=== PATIENT | male | born 1930 | race Caucasian/White ===

== ENCOUNTER 2016-03-28 08:57 | Inpatient (IN) | payer OTHER ==
[~2016-03-28] VITALS: Ht 177.8 cm; Wt 98.5 kg
[~2016-03-28 08:57] MED LIST: AMLO5TAB4 PO; CLOP1TAB15 PO; CRD200 PO; FINA5TAB PO; FLM4 PO; HYDR12.55 PO; LISI-725 PO; OXYC1TAB3 PO; SIMV20TA2 PO; WARF5TAB7 PO; ZOLP10TA PO
[2016-03-28] MEDS ORDERED: ONDANSETRON INJ 2 MG/ML 2 ML VIAL IV STA (09:13)
[2016-03-28] MEDS ORDERED: MoRPHine SULFATE 4 MG/ML 1 ML CARP\\VIAL IV PRN (09:15)
--- NOTE | 2016-03-28 09:24 | EMERGENCY ROOM VISIT NOTE ---
History Report prepared by Ruby: Carito Lopez Under the Supervision of: Dr. Luis Carlos Ng D.O. First contact with patient: 09:04 Chief Complaint: FALL Stated Complaint: FALL History of Present Illness The patient is an 85 year old male who presents to the Emergency Room with complaints of low back pain after a fall. The patient states that he has a chronic sore that has been ongoing for 3-4 months on his left ankle. He states it is no worse than usual. He notices no worsening of redness swelling or pain in this area that he was putting baby oil to the area last night before bed. He had his left leg up on the toilet. He turned the wrong way and his foot slipped off of the toilet and he fell backwards. He struck his back in his right hip on the step that leads into the shower. The patient had very significant pain in this area. The patient fell last evening and took his a long time to get him out of the bathroom. The patient was unable to put any weight on his right leg. He states the area is weak but he also has very severe pain whenever he tries to put any weight on his right leg. He denies any headache. He denies having any neck pain. The patient denies having any chest pain shortness of breath nausea or vomiting. He has no abdominal tenderness. He did not take any pain medication prior to arrival. When his pain continued this morning his significant other called 911 and the patient was brought to the emergency department via BLS. Source of History: patient Onset: last evening Position: back (lower) Timing: worsening Modifying Factors (Worsening): other (weight bearing) Associated Symptoms: No SOB, No abdominal pain, No chest pain, No headache, No neck pain Note: Patient is unable to put weight on right leg secondary to pain. Review of Systems See HPI for pertinent positives & negatives. A total of 10 systems reviewed and were otherwise negative. 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 (4) Hyperlipidemia Nec/Nos (5) Hypertension Nos (6) Intracerebral Hemorrhage Family History No pertinent family history Social History Smoking Status: Never Smoker Alcohol Use: none Drug Use: none Marital Status: Occupation Status: retired Current/Historical Medications Scheduled Amiodarone Hcl (Cordarone *), 200 MG PO DAILY Amlodipine Besylate (Norvasc), 5 MG PO HS Clopidogrel (Plavix), 75 MG PO DAILY Finasteride (Proscar), 5 MG PO DAILY Hydrochlorothiazide (Hydrochlorothiazide), 12.5 MG PO DAILY Levothyroxine Sodium (Synthroid), 1 TAB PO DAILY Lisinopril (Zestril), 20 MG PO BID Simvastatin (Zocor), 20 MG PO QPM Tamsulosin Hcl (Flomax *), 0.4 MG PO DAILY Warfarin Sod (Jantoven), 2.5 MG PO DAILY Zolpidem Tartrate (Ambien), 10 MG PO HS Allergies Coded Allergies: No Known Allergies (Verified , NONE, 03/02/14) Physical Exam Vital Signs Date Time Temp Pulse Resp B/P Pulse Ox O2 Delivery O2 Flow Rate FiO2 03/28/16 17:59 61 18 120/74 95 Room Air 03/28/16 16:20 65 17 121/72 96 Room Air 03/28/16 14:30 64 20 126/63 97 Room Air 03/28/16 13:30 69 20 159/88 98 Room Air 03/28/16 11:33 65 15 136/84 97 Room Air 03/28/16 09:02 36.9 88 20 166/90 99 Room Air Physical Exam GENERAL: Patient is awake and alert. He appears to be very anxious and uncomfortable. EYES: The conjunctivae are clear. The pupils are round and reactive. EARS, NOSE, MOUTH AND THROAT: The nose is without any evidence of any deformity. Mucous membranes are moist tongue is midline NECK: The neck is nontender and supple. The cervical spine was clinically cleared in the emergency department. RESPIRATORY: Normal respiratory effort is noted there is no evidence of wheezing rhonchi or rales CARDIOVASCULAR: Regular rate and rhythm noted there no murmurs rubs or gallops normal S1 normal S2 GASTROINTESTINAL: The abdomen is mildly distended but soft. There is no specific tenderness guarding or rigidity noted. BACK: No midline tenderness was noted. There is significant right side paravertebral muscle tenderness especially in the low lumbar spine. There is no thoracic spine tenderness patient has significant pain with range of motion. MUSCULOSKELETAL/EXTREMITIES: There is no evidence of gross deformity full range of motion is noted in the hips and shoulders. Hip flexion does elicit significant pain in the lower back. SKIN: Pedal edema was noted bilaterally. Patient has an ulceration on the medial left ankle. There is mild erythema noted. There is no discharge or tenderness appreciated. NEUROLOGIC: Patient is awake alert and oriented x3. Strength was symmetric in both lower extremities but patient has very significant pain with raising the right leg off of the bed so it is difficult to ascertain if this is secondary to pain or weakness. Medical Decision & Procedures ER Provider Diagnostic Interpretation: CT results as stated below per my review and radiologist interpretation. X-ray results as stated below per interpretation by me and the radiologist. PELVIS CT CT DOSE: HISTORY: Right hip pain. fall, on blood thinners, hx of bleed TECHNIQUE: Multiaxial CT images of the pelvis were performed and reformatted in the sagittal and coronal plane without the use of contrast. COMPARISON: Abdomen and pelvis CT 02/02/2016. FINDINGS: Fractures involving the left L3 and L4 transverse processes. No fracture or dislocation within the pelvis or hips. Colonic diverticulosis. Mild body wall edema. The sacrum appears intact. Moderate osteoarthritis within the bilateral hips. IMPRESSION: 1. Left L3 and L4 transverse process fractures. 2. No acute fracture or dislocation within the pelvis or hips. Electronically signed by: Mike Nieto M.D. 03/28/2016 10:40 AM Dictated Date/Time: 03/28/2016 10:[address] LUMBAR SPINE WITHOUT CT DOSE: 3313.50 mGy.cm CLINICAL HISTORY: Fall. TECHNIQUE: Axial images lumbar spine were obtained without IV contrast. Sagittal and coronal reconstructions were viewed. COMPARISON STUDY: Lumbar spine CT September 26, 2015. FINDINGS: Alignment of the lumbar spine is anatomic. There are acute mildly displaced fractures of the left transverse processes of L2, L3 and L4. Vertebral body heights are maintained. Moderate multilevel degenerative disc disease and facet arthrosis is present. The central canal and neural foramen are suboptimally assessed by CT. Paravertebral soft tissues are unremarkable on this examination. Extensive osteophytosis is noted. IMPRESSION: 1. Acute mildly displaced fractures of the left transverse processes of L2, L3 and L4. 2. Moderate multilevel degenerative disc disease and severe multilevel facet arthrosis of the lumbar spine. Electronically signed by: Reji Whitley M.D. 03/28/2016 10:50 AM Dictated Date/Time: 03/28/2016 10:42 AM RIGHT HIP UNILATERAL 2 VIEWS CLINICAL HISTORY: Right hip pain following fall. COMPARISON: CT of the abdomen and pelvis February 02, 2016. FINDINGS: Alignment of the right hip is anatomic. No acute fracture is identified. There is moderate right hip arthritis. IMPRESSION: 1. No acute fracture or dislocation of the right hip. 2. Moderate osteoarthritis of the right hip. Electronically signed by: Reji Whitley M.D. 03/28/2016 11:29 AM Dictated Date/Time: 03/28/2016 11:[address] SCAN OF THE BRAIN WITHOUT IV CONTRAST CLINICAL HISTORY: Fall. Anticoagulated patient. COMPARISON STUDY: CT of the brain dated 06/04/2012. TECHNIQUE: Unenhanced axial CT scan of the brain is performed from the vertex to the skull base. FINDINGS: Brain parenchyma: There are age-related involutional changes noting moderate to advanced subcortical and periventricular microangiopathic change. There is encephalomalacia consistent with a remote right MCA territory infarct. There are also foci of right frontal, right occipital, and right cerebellar encephalomalacia. A chronic lacunar infarct is seen in the left external capsule. There is no hemorrhage, mass effect, or evidence of acute territorial ischemia by CT criteria. [place]-white matter is preserved. No extra-axial fluid collection is seen. Ventricles, sulci, cisterns: Prominent secondary to involutional change. Intracranial vasculature: There is atherosclerotic calcification of the cavernous carotid arteries. Calvarium: Unremarkable. Sinuses and mastoids: There is trace mucosal thickening in the left maxillary antrum. The remaining visualized paranasal sinuses are clear. The mastoid air cells are well pneumatized. Orbits: The bony orbits are grossly intact. There are bilateral ocular lens implants. IMPRESSION: Senescent changes and remote infarcts as above. There is no hemorrhage, mass effect, or evidence of acute territorial ischemia by CT criteria. Electronically signed by: Jeff Tavarez M.D. 03/28/2016 10:40 AM Dictated Date/Time: 03/28/2016 10:34 AM CHEST 2 VIEWS ROUTINE HISTORY: fall, on blood thinners, hx of bleed COMPARISON: Chest 09/26/2015. FINDINGS: Low lung volumes. No focal lung consolidations. No evidence for pulmonary edema. No pleural effusions. No pneumothorax. The cardiac silhouette is mildly enlarged. This may be accentuated by the low lung volumes. No rib fractures identified. IMPRESSION: No acute process. Electronically signed by: Mike Nieto M.D. 03/28/2016 11:29 AM Dictated Date/Time: 03/28/2016 11:27 AM LEFT ANKLE MIN 3 VIEWS ROUTINE CLINICAL HISTORY: Left ankle swelling, non healing ulcer medial ankle. COMPARISON: Left ankle radiographs June 04, 2012. FINDINGS: Alignment of the left ankle is anatomic. No acute fracture is identified. There is extensive posterior calcaneal spurring with mild plantar calcaneal spurring. Multiple soft tissue calcifications are old. Irregularity of the medial and lateral malleoli is old. There is mild to moderate arthritis. Medial ankle soft tissue swelling is present. There is no radiographic evidence of osteomyelitis. IMPRESSION: 1. No acute fracture or dislocation of the left ankle. 2. Moderate medial ankle soft tissue swelling. No radiographic evidence of osteomyelitis. 3. Mild to moderate arthritis with extensive posterior calcaneal spurring. Electronically signed by: Reji Whitley M.D. 03/28/2016 11:27 AM Dictated Date/Time: 03/28/2016 11:26 AM Laboratory Results 03/28/16 10:09 Red Blood Count 4.00, Mean Corpuscular Volume 95.8, Mean Corpuscular Hemoglobin 32.8, Mean Corpuscular Hemoglobin Concent 34.2, Mean Platelet Volume 10.4, Neutrophils (%) (Auto) 67.0, Lymphocytes (%) (Auto) 20.8, Monocytes (%) (Auto) 10.1, Eosinophils (%) (Auto) 1.6, Basophils (%) (Auto) 0.3, Neutrophils # (Auto ) 4.16, Lymphocytes # (Auto) 1.29, Monocytes # (Auto) 0.63, Eosinophils # (Auto ) 0.10, Basophils # (Auto) 0.02 03/28/16 10:09 Test 03/28/16 09:47 03/28/16 10:09 Urine Color YELLOW Urine Appearance CLEAR (CLEAR) Urine pH 5.0 (4.5-7.5) Urine Specific [place] 1.013 (1.000-1.030) Urine Protein NEG (NEG) Urine Glucose (UA) NEG (NEG) Urine Ketones TRACE (NEG) Urine Occult Blood NEG (NEG) Urine Nitrite NEG (NEG) Urine Bilirubin NEG (NEG) Urine Urobilinogen NEG (NEG) Urine Leukocyte Esterase NEG (NEG) White Blood Count 6.21 K/uL (4.8-10.8) Red Blood Count 4.00 M/uL (4.7-6.1) Hemoglobin 13.1 g/dL (14.0-18.0) Hematocrit 38.3 % (42-52) Mean Corpuscular Volume 95.8 fL (80-100) Mean Corpuscular Hemoglobin 32.8 pg (25-34) Mean Corpuscular Hemoglobin Concent 34.2 g/dl (32-36) Platelet Count 229 K/uL (130-400) Mean Platelet Volume 10.4 fL (7.4-10.4) Neutrophils (%) (Auto) 67.0 % Lymphocytes (%) (Auto) 20.8 % Monocytes (%) (Auto) 10.1 % Eosinophils (%) (Auto) 1.6 % Basophils (%) (Auto) 0.3 % Neutrophils # (Auto) 4.16 K/uL (1.4-6.5) Lymphocytes # (Auto) 1.29 K/uL (1.2-3.4) Monocytes # (Auto) 0.63 K/uL (0.11-0.59) Eosinophils # (Auto) 0.10 K/uL (0-0.5) Basophils # (Auto) 0.02 K/uL (0-0.2) RDW Standard Deviation 48.9 fL (36.4-46.3) RDW Coefficient of Variation 14.0 % (11.5-14.5) Immature Granulocyte % (Auto) 0.2 % Immature Granulocyte # (Auto) 0.01 K/uL (0.00-0.02) Prothrombin Time 25.0 SECONDS (9.0-12.0) Prothromb Time International Ratio 2.3 (0.9-1.1) Activated Partial Thromboplast Time 34.1 SECONDS (21.0-31.0) Partial Thromboplastin Ratio 1.3 Anion Gap 8.0 mmol/L (3-11) Est Creatinine Clear Calc Drug Dose 43.9 ml/min Estimated GFR () 49.2 Estimated GFR (Non- 42.4 BUN/Creatinine Ratio 16.8 (10-20) Calcium Level 9.1 mg/dl (8.5-10.1) Total Bilirubin 0.7 mg/dl (0.2-1) Direct Bilirubin 0.2 mg/dl (0-0.2) Aspartate Amino Transf (AST/SGOT) 21 U/L (15-37) Alanine Aminotransferase (ALT/SGPT) 25 U/L (12-78) Alkaline Phosphatase 93 U/L (45-117) Total Protein 7.1 gm/dl (6.4-8.2) Albumin 4.1 gm/dl (3.4-5.0) Lipase 124 U/L (73-393) Laboratory results per my review. ED Course 0910: The patient was evaluated in room A2. A complete history and physical examination were performed. 0913: Zofran 4 mg IV and Morphine Sulfate 4 mg IV were ordered. 1100: Patient was reevaluated at this time and appeared to be resting more comfortably. The results of his radiology reports are pending. 1300: I reevaluated the patient at this time and updated him on the results of his radiology reports. [facility] will be in to evaluate him and the orthopedist will be contacted. 1400: [facility] has evaluated the patient. They have determined that he meets criteria for rehab. 1430: Dr. Holt of spinal orthopedics called back and recommended giving the patient an LSO brace. Orthotics will be contacted. 1600: Orthotics was able to fit the patient with the LSO brace. 1630: 1550: Case management contacted [facility] and stated that they do not currently have any available beds. The hospitalist will be contacted. 1640: After discussion with Dr. Riddle, the patient will continue to be evaluated by the [facility] hospitalist for further management. The patient verbalized his understanding and agreement with this treatment plan. Medical Decision Prior records/ancillary studies reviewed. Triage Nursing notes reviewed. Additional history obtained from the patient's significant other. The patient's history was concerning for fall and back pain. Differential diagnosis: Etiologies such as musculoskeletal, disc herniation, fracture, aortic disease, metastatic disease, cord compression, discitis, infection, renal colic, gastrointestinal, acute exacerbation of chronic back pain, sciatica, cauda equina, as well as others were entertained. The patient is an 85-year-old male who presented to the emergency department after having a fall last evening. The patient in very severe pain in his lower back after a fall. The patient is on Coumadin. He denies having directly struck his head. The patient complains of mostly right back right hip and lower back pain. The patient is any pain with any movement. He was treated with IV pain medication in the emergency department. I discussed the patient's laboratory and radiographic studies with him. He was found have multiple transverse process fractures. He did not appear to have any acute fracture in the pelvis or the hip. I discussed his case with the emergency department complex case manager. They initially were able to make a referral to rehabilitation. He was evaluated by OT and PT in the emergency department. He was felt to be a good candidate for rehabilitation. Unfortunately we were unable to get out of bed this evening. I discussed his case with the on-call spinal specialist as well as the on-call [facility] hospitalist group. The patient is to be evaluated by the hospitalist for inpatient management and then likely referral to a rehabilitation as soon as possible. Consults Time Called: 1300 Consulting Physician: Dr. Holt - spinal orthopedics Returned Call: 1430 Discussed the patient's case. He recommended fitting the patient with an LSO brace. Additional Consults: Time Called: 1630 Consulted Physician: Dr. Riddle - [facility] Returned Call: 1640 Additional Comments: Discussed the patient's case. He will continue to be evaluated by the [facility] hospitalist for further management. Impression Primary Impression: Fall Additional Impressions: Multiple transverse process fractures Contusion of right hip Ambulatory dysfunction Scribe Attestation The scribe's documentation has been prepared under my direction and personally reviewed by me in its entirety. I confirm that the note above accurately reflects all work, treatment, procedures, and medical decision making performed by me. Departure Information Dispostion Being Evaluated By Hospitalist ([facility]) Referrals Rafa Gonzalez M.D. (PCP) Problem Qualifiers
[2016-03-28 10:04] LABS: URINE APPEARANCE CLEAR (CLEAR); URINE BILIRUBIN NEG (NEG); URINE COLOR YELLOW; URINE NITRITE NEG (NEG); URINE SPECIFIC GRAVITY 1.013 (1.000-1.030); UROBILINOGEN NEG (NEG)
[2016-03-28] MEDS ORDERED: LEVO25TA PO (10:10)
[2016-03-28 10:13] LABS: MANUAL MICROSCOPIC REQUIRED? NO; REVIEW REQ? NO
[2016-03-28 10:26] LABS: BASO % 0.3 %; BASO ABS # 0.02 K/uL (0-0.2); COMPLETE YES; EOS % 1.6 %; HEMATOCRIT 38.3 % (42-52); IG% 0.2 %; LYMPH % 20.8 %; LYMPH ABS # 1.29 K/uL (1.2-3.4); MEAN CELL VOLUME 95.8 fL (80-100); MEAN CORPUSCULAR HEMOGLOBIN 32.8 pg (25-34); MEAN CORPUSCULAR HGB CONC 34.2 g/dl (32-36); MEAN PLATELET VOLUME 10.4 fL (7.4-10.4); MONO % 10.1 %; PLATELET COUNT 229 K/uL (130-400); WHITE BLOOD COUNT 6.21 K/uL (4.8-10.8)
[2016-03-28 10:37] LABS: INR 2.3 (0.9-1.1); PARTIAL THROMBOPLASTIN RATIO 1.3
[2016-03-28 10:41] LABS: BUN/CREATININE RATIO 16.8 (10-20); CALCIUM 9.1 mg/dl (8.5-10.1); CREATININE 1.5 mg/dl (0.60-1.40); POTASSIUM 4.4 mmol/L (3.5-5.1)
--- NOTE | 2016-03-28 10:42 | DIAGNOSTIC IMAGING REPORT ---
PELVIS CT CT DOSE: HISTORY: Right hip pain. fall, on blood thinners, hx of bleed TECHNIQUE: Multiaxial CT images of the pelvis were performed and reformatted in the sagittal and coronal plane without the use of contrast. COMPARISON: Abdomen and pelvis CT 02/02/2016. FINDINGS: Fractures involving the left L3 and L4 transverse processes. No fracture or dislocation within the pelvis or hips. Colonic diverticulosis. Mild body wall edema. The sacrum appears intact. Moderate osteoarthritis within the bilateral hips. IMPRESSION: 1. Left L3 and L4 transverse process fractures. 2. No acute fracture or dislocation within the pelvis or hips. Electronically signed by: Mike Nieto M.D. 03/28/2016 10:40 AM Dictated Date/Time: 03/28/2016 10:33 AM
--- NOTE | 2016-03-28 10:42 | DIAGNOSTIC IMAGING REPORT ---
CT SCAN OF THE BRAIN WITHOUT IV CONTRAST CLINICAL HISTORY: Fall. Anticoagulated patient. COMPARISON STUDY: CT of the brain dated 06/04/2012. TECHNIQUE: Unenhanced axial CT scan of the brain is performed from the vertex to the skull base. FINDINGS: Brain parenchyma: There are age-related involutional changes noting moderate to advanced subcortical and periventricular microangiopathic change. There is encephalomalacia consistent with a remote right MCA territory infarct. There are also foci of right frontal, right occipital, and right cerebellar encephalomalacia. A chronic lacunar infarct is seen in the left external capsule. There is no hemorrhage, mass effect, or evidence of acute territorial ischemia by CT criteria. [place]-white matter is preserved. No extra-axial fluid collection is seen. Ventricles, sulci, cisterns: Prominent secondary to involutional change. Intracranial vasculature: There is atherosclerotic calcification of the cavernous carotid arteries. Calvarium: Unremarkable. Sinuses and mastoids: There is trace mucosal thickening in the left maxillary antrum. The remaining visualized paranasal sinuses are clear. The mastoid air cells are well pneumatized. Orbits: The bony orbits are grossly intact. There are bilateral ocular lens implants. IMPRESSION: Senescent changes and remote infarcts as above. There is no hemorrhage, mass effect, or evidence of acute territorial ischemia by CT criteria. Electronically signed by: Jeff Tavarez M.D. 03/28/2016 10:40 AM Dictated Date/Time: 03/28/2016 10:34 AM
--- NOTE | 2016-03-28 10:52 | DIAGNOSTIC IMAGING REPORT ---
CT LUMBAR SPINE WITHOUT CT DOSE: 3313.50 mGy.cm CLINICAL HISTORY: Fall. TECHNIQUE: Axial images lumbar spine were obtained without IV contrast. Sagittal and coronal reconstructions were viewed. COMPARISON STUDY: Lumbar spine CT September 26, 2015. FINDINGS: Alignment of the lumbar spine is anatomic. There are acute mildly displaced fractures of the left transverse processes of L2, L3 and L4. Vertebral body heights are maintained. Moderate multilevel degenerative disc disease and facet arthrosis is present. The central canal and neural foramen are suboptimally assessed by CT. Paravertebral soft tissues are unremarkable on this examination. Extensive osteophytosis is noted. IMPRESSION: 1. Acute mildly displaced fractures of the left transverse processes of L2, L3 and L4. 2. Moderate multilevel degenerative disc disease and severe multilevel facet arthrosis of the lumbar spine. Electronically signed by: Reji Whitley M.D. 03/28/2016 10:50 AM Dictated Date/Time: 03/28/2016 10:42 AM
--- NOTE | 2016-03-28 11:29 | DIAGNOSTIC IMAGING REPORT ---
LEFT ANKLE MIN 3 VIEWS ROUTINE CLINICAL HISTORY: Left ankle swelling, non healing ulcer medial ankle. COMPARISON: Left ankle radiographs June 04, 2012. FINDINGS: Alignment of the left ankle is anatomic. No acute fracture is identified. There is extensive posterior calcaneal spurring with mild plantar calcaneal spurring. Multiple soft tissue calcifications are old. Irregularity of the medial and lateral malleoli is old. There is mild to moderate arthritis. Medial ankle soft tissue swelling is present. There is no radiographic evidence of osteomyelitis. IMPRESSION: 1. No acute fracture or dislocation of the left ankle. 2. Moderate medial ankle soft tissue swelling. No radiographic evidence of osteomyelitis. 3. Mild to moderate arthritis with extensive posterior calcaneal spurring. Electronically signed by: Reji Whitley M.D. 03/28/2016 11:27 AM Dictated Date/Time: 03/28/2016 11:26 AM
--- NOTE | 2016-03-28 11:31 | DIAGNOSTIC IMAGING REPORT ---
RIGHT HIP UNILATERAL 2 VIEWS CLINICAL HISTORY: Right hip pain following fall. COMPARISON: CT of the abdomen and pelvis February 02, 2016. FINDINGS: Alignment of the right hip is anatomic. No acute fracture is identified. There is moderate right hip arthritis. IMPRESSION: 1. No acute fracture or dislocation of the right hip. 2. Moderate osteoarthritis of the right hip. Electronically signed by: Reji Whitley M.D. 03/28/2016 11:29 AM Dictated Date/Time: 03/28/2016 11:28 AM
--- NOTE | 2016-03-28 11:31 | DIAGNOSTIC IMAGING REPORT ---
CHEST 2 VIEWS ROUTINE HISTORY: fall, on blood thinners, hx of bleed COMPARISON: Chest 09/26/2015. FINDINGS: Low lung volumes. No focal lung consolidations. No evidence for pulmonary edema. No pleural effusions. No pneumothorax. The cardiac silhouette is mildly enlarged. This may be accentuated by the low lung volumes. No rib fractures identified. IMPRESSION: No acute process. Electronically signed by: Mike Nieto M.D. 03/28/2016 11:29 AM Dictated Date/Time: 03/28/2016 11:27 AM
[2016-03-28] MEDS ORDERED: ACETAMINOPHEN 325 MG TAB PO PRN (17:30)
[2016-03-28] MEDS ORDERED: OXYCODONE/ACETAMINOPHEN 5-325 TAB PO PRN (17:30)
[2016-03-28] MEDS ORDERED: ONDANSETRON INJ 2 MG/ML 2 ML VIAL IV PRN (17:30)
[2016-03-28 17:35] VITALS: O2SAT 96; Ht 177.8 cm; Wt 98.5 kg
[2016-03-28] MEDS ORDERED: IV FLUIDS COMPLETED PRN (18:30)
[2016-03-28 18:50] VITALS: BP 131/81; PULSE 62; TEMP 36.7; O2SAT 96
--- NOTE | 2016-03-28 19:43 | History and Physical ---
History & Physical Date & Time of Service: Mar 28, 2016 at 17:33 Chief Complaint: FALL Primary Care Physician: Rafa Gonzalez M.D. History of Present Illness Source: patient Pt is a 85 year old male who presents to the ER with complaints of low back pain after a fall. Pt reports he was propping his left leg on the toilet to place cream on his leg when he fell backwards and struck his back and right hip. The patient had very significant pain in this area. The patient fell last evening and took his a long time to get him out of the bathroom. The patient was unable to put any weight on his right leg. He states the area is weak but he also has very severe pain whenever he tries to put any weight on his right leg. He denies any headache. He denies having any neck pain. The patient denies having any chest pain shortness of breath nausea or vomiting. Past Medical/Surgical History Medical Problems: (1) Acute Renal Failure, Unspecified Status: Resolved (2) Coron Atheroscler Nos Type Vessel, Creek Or Graft Status: Chronic (3) Cva Status: Chronic (4) Hyperlipidemia Nec/Nos Status: Chronic (5) Hypertension Nos Status: Chronic (6) Intracerebral Hemorrhage Status: Resolved Family History No pertinent family history Social History Smoking Status: Never Smoker Drug Use: none Marital Status: Housing status: lives with family Occupational Status: retired Immunizations History of Influenza Vaccine: Yes Influenza Vaccine Date: Nov 29, 2010 History of Tetanus Vaccine?: utd History of Pneumococcal: Unknown Pneumococcal Date: Dec 02, 2009 History of Hepatitis B Vaccine: Unknown Multi-Drug Resistant Organisms History of MDRO: No Allergies Coded Allergies: No Known Allergies (Verified , NONE, 03/02/14) Home Medications Scheduled Amiodarone Hcl (Cordarone *), 200 MG PO DAILY Amlodipine Besylate (Norvasc), 5 MG PO HS Clopidogrel (Plavix), 75 MG PO DAILY Finasteride (Proscar), 5 MG PO DAILY Hydrochlorothiazide (Hydrochlorothiazide), 12.5 MG PO DAILY Levothyroxine Sodium (Synthroid), 1 TAB PO DAILY Lisinopril (Zestril), 20 MG PO BID Simvastatin (Zocor), 20 MG PO QPM Tamsulosin Hcl (Flomax *), 0.4 MG PO DAILY Warfarin Sod (Jantoven), 2.5 MG PO DAILY Zolpidem Tartrate (Ambien), 10 MG PO HS Review of Systems Constitutional: No chills, No fever Respiratory: No cough, No sputum Cardiovascular: No chest pain, No orthopnea Abdomen: No diarrhea, No nausea, No pain, No vomiting Musculoskeletal: + joint pain Genitourinary - Male: No dysuria, No hematuria Neurologic: No paralysis, No weakness Physical Exam Vital Signs Date Time Temp Pulse Resp B/P Pulse Ox O2 Delivery O2 Flow Rate FiO2 03/28/16 16:20 65 17 121/72 96 Room Air 03/28/16 14:30 64 20 126/63 97 Room Air 03/28/16 13:30 69 20 159/88 98 Room Air 03/28/16 11:33 65 15 136/84 97 Room Air 03/28/16 09:02 36.9 88 20 166/90 99 Room Air General Appearance: WD/WN, no apparent distress Neck: supple, no adenopathy Respiratory/Chest: chest non-tender, lungs clear, normal breath sounds Cardiovascular: no edema, no gallop Abdomen/GI: normal bowel sounds, non tender, soft Neurologic/Psych: alert, oriented x 3 Diagnostics Laboratory Results Results Past 24 Hours Test 03/28/16 09:47 03/28/16 10:09 Range/Units Urine Color YELLOW Urine Appearance CLEAR CLEAR Urine pH 5.0 4.5-7.5 Urine Specific [place] 1.013 1.000-1.030 Urine Protein NEG NEG Urine Glucose (UA) NEG NEG Urine Ketones TRACE NEG Urine Occult Blood NEG NEG Urine Nitrite NEG NEG Urine Bilirubin NEG NEG Urine Urobilinogen NEG NEG Urine Leukocyte Esterase NEG NEG White Blood Count 6.21 4.8-10.8 K/uL Red Blood Count 4.00 4.7-6.1 M/uL Hemoglobin 13.1 14.0-18.0 g/dL Hematocrit 38.3 42-52 % Mean Corpuscular Volume 95.8 80-100 fL Mean Corpuscular Hemoglobin 32.8 25-34 pg Mean Corpuscular Hemoglobin Concent 34.2 32-36 g/dl Platelet Count 229 130-400 K/uL Mean Platelet Volume 10.4 7.4-10.4 fL Neutrophils (%) (Auto) 67.0 % Lymphocytes (%) (Auto) 20.8 % Monocytes (%) (Auto) 10.1 % Eosinophils (%) (Auto) 1.6 % Basophils (%) (Auto) 0.3 % Neutrophils # (Auto) 4.16 1.4-6.5 K/uL Lymphocytes # (Auto) 1.29 1.2-3.4 K/uL Monocytes # (Auto) 0.63 0.11-0.59 K/uL Eosinophils # (Auto) 0.10 0-0.5 K/uL Basophils # (Auto) 0.02 0-0.2 K/uL RDW Standard Deviation 48.9 36.4-46.3 fL RDW Coefficient of Variation 14.0 11.5-14.5 % Immature Granulocyte % (Auto) 0.2 % Immature Granulocyte # (Auto) 0.01 0.00-0.02 K/uL Prothrombin Time 25.0 9.0-12.0 SECONDS Prothromb Time International Ratio 2.3 0.9-1.1 Activated Partial Thromboplast Time 34.1 21.0-31.0 SECONDS Partial Thromboplastin Ratio 1.3 Sodium Level 141 136-145 mmol/L Potassium Level 4.4 3.5-5.1 mmol/L Chloride Level 107 98-107 mmol/L Carbon Dioxide Level 26 21-32 mmol/L Anion Gap 8.0 3-11 mmol/L Blood Urea Nitrogen 25 7-18 mg/dl Creatinine 1.50 0.60-1.40 mg/dl Est Creatinine Clear Calc Drug Dose 43.9 ml/min Estimated GFR () 49.2 Estimated GFR (Non- 42.4 BUN/Creatinine Ratio 16.8 10-20 Random Glucose 103 70-99 mg/dl Calcium Level 9.1 8.5-10.1 mg/dl Total Bilirubin 0.7 0.2-1 mg/dl Direct Bilirubin 0.2 0-0.2 mg/dl Aspartate Amino Transf (AST/SGOT) 21 15-37 U/L Alanine Aminotransferase (ALT/SGPT) 25 12-78 U/L Alkaline Phosphatase 93 45-117 U/L Total Protein 7.1 6.4-8.2 gm/dl Albumin 4.1 3.4-5.0 gm/dl Lipase 124 73-393 U/L Impression Assessment and Plan Pt is a 85 yo male who presents to ER after mechanical fall with multiple transverse process fractures L2-4 with mild displacement Mechanical Fall with Transverse process fractures - Admit to OBS at this time. Brace placed in ER. Pain controlled on percocet. PT/OT consulted. Will discharge to [facility] when bed available Aflutter - Cont coumadin, rate controlled on amiodarone. INR 2.3 HTN - Cont lisinopril, norvasc, HCTZ Hx of carotid stent - Cont plavix BPH - Cont finasteride and flomax VTE Prophylaxis VTE Risk Assessment Done? Y/N: Yes Risk Level: Moderate
[2016-03-28] MEDS: ZOLPIDEM TARTRATE 10 MG TAB PO SCH (20:32)
[2016-03-28] MEDS: SIMVASTATIN 20 MG TAB PO SCH (20:32)
[2016-03-28] MEDS: AMLODIPINE BESYLATE 5 MG TAB PO SCH (20:33)
[2016-03-28] MEDS: WARFARIN SOD 5 MG TAB PO SCH (20:34)
[2016-03-28] MEDS ORDERED: LISINOPRIL 20 MG TAB PO SCH (21:00)
[2016-03-28 23:18] VITALS: BP 85/55; PULSE 61; TEMP 37; O2SAT 95
[2016-03-29] VITALS (7 sets, daily range): BP systolic 82–118; BP diastolic 49–64; PULSE 53–71; TEMP 36.5–36.7; O2SAT 94–96
[2016-03-29] MEDS ORDERED: NURSING VERBAL MED ORDER ONE (00:15)
[2016-03-29] MEDS ORDERED: SODIUM CHLORIDE 0.9% 250ML 250 ML IV STA (00:22)
[2016-03-29] MEDS: LEVOTHYROXINE 25 MCG TAB PO SCH (05:44)
[2016-03-29 07:02] LABS: INR 2.3 (0.9-1.1); PROTHROMBIN TIME (PATIENT) 25.4 SECONDS (9.0-12.0)
[2016-03-29] MEDS ORDERED: SODIUM CHLORIDE 0.9% 1000ML 500 ML IV ONE (07:51)
[2016-03-29] MEDS ORDERED: PNEUMOCOCCAL ADMINISTRATION CHARGE ONE (08:00)
[2016-03-29] MEDS ORDERED: PNEUMOCOCCAL POLYSACCHARIDES 25 MCG/0.5 ML VIAL/SYR IM. ONE (08:00)
[2016-03-29 08:31] LABS: BUN/CREATININE RATIO 17.2 (10-20); CALCIUM 8.4 mg/dl (8.5-10.1); CREATININE 1.8 mg/dl (0.60-1.40); POTASSIUM 4.1 mmol/L (3.5-5.1)
[2016-03-29] MEDS: FINASTERIDE 5 MG TAB PO SCH (08:31)
[2016-03-29] MEDS: TAMSULOSIN HCL 0.4 MG CAP PO SCH (08:34)
[2016-03-29] MEDS: AMIODARONE 200 MG TAB PO SCH (08:35)
[2016-03-29] MEDS: CLOPIDOGREL BISULFATE 75 MG TAB PO SCH (08:35)
[2016-03-29] MEDS ORDERED: HYDROCHLOROTHIAZIDE 25 MG TAB PO SCH (09:00)
[2016-03-29] MEDS ORDERED: SODIUM CHLORIDE 0.9% 1000ML 1,000 ML IV SCH (10:04)
[2016-03-29] MEDS: POLYETHYLENE (MIRALAX) 17 GM PACK PO SCH (12:26)
[2016-03-29] MEDS ORDERED: POLYETHYLENE (MIRALAX) 17 GM PACK PO SCH (13:00)
--- NOTE | 2016-03-29 13:06 | Hospitalist Progress Note ---
Hospitalist Progress Note Date of Service Mar 29, 2016. (Lacy Diamond PA-C) 03/29/16 agree with PA note (Raleigh Moore MD) Subjective Pt evaluation today including: conversation w/ patient, physical exam, chart review, lab review, review of studies, review of inpatient medication list Pain: None PO Intake: Good Voiding: no voiding problems Pt was seen and examined this morning. Pain is well controlled at this time, brace is fitting well. He has taken one percocet thus far, and he is requesting a bowel regimen as he normally requires one at home. He denies chest pain, lightheadedness, dizziness. Pt has no other acute complaints. Constitutional: No chills, No fever, No sweats Eyes: No problem reported ENT: No nasal symptoms, No sore throat Respiratory: No cough, No dyspnea on exertion, No shortness of breath, No sputum, No wheezing Cardiovascular: No chest pain, No palpitations Abdomen: No constipation, No diarrhea, No nausea, No vomiting Musculoskeletal: No joint pain Neurologic: No numbness/tingling, No weakness Skin: No itch, No rash (Lacy Diamond PA-C) Pt evaluation today including: conversation w/ patient, physical exam, chart review, review of studies, review of inpatient medication list reported low BP Constitutional: No fever ENT: No hearing loss Respiratory: No cough Cardiovascular: No chest pain Abdomen: No pain Male : No dysuria Neurologic: No memory loss Psychiatric: No depression symptoms Endo: No fatigue (Raleigh Moore MD) Objective Vital Signs Date Time Temp Pulse Resp B/P Pulse Ox O2 Delivery O2 Flow Rate FiO2 03/29/16 09:48 65 92/55 03/29/16 07:40 Room Air 03/29/16 07:01 36.5 55 18 100/62 94 Room Air 03/29/16 05:30 53 102/64 03/29/16 02:02 53 94/58 03/29/16 00:00 57 82/49 03/28/16 23:18 37.0 61 16 85/55 95 Room Air 03/28/16 19:30 Room Air 03/28/16 18:50 36.7 62 18 131/81 96 Room Air 03/28/16 17:59 61 18 120/74 95 Room Air 03/28/16 17:35 96 Room Air 03/28/16 16:20 65 17 121/72 96 Room Air 03/28/16 14:30 64 20 126/63 97 Room Air 03/28/16 13:30 69 20 159/88 98 Room Air (Lacy Diamond PA-C) Physical Exam General Appearance: WD/WN, no apparent distress Eyes: PERRL, EOMI ENT: hearing grossly normal, pharynx normal Neck: no JVD Respiratory/Chest: lungs clear, normal breath sounds, no respiratory distress, no accessory muscle use Cardiovascular: regular rate, rhythm, no murmur Abdomen: normal bowel sounds, non tender, soft Extremities: non-tender, no pedal edema, no calf tenderness Neurologic/Psychiatric: alert, normal mood/affect, oriented x 3 Skin: normal color, warm/dry Notes: BACK: brace in place currently. Pain with movement of sitting forward in trunk flexion. (Lacy Diamond PA-C) General Appearance: WD/WN, no apparent distress Eyes: normal inspection, EOMI ENT: hearing grossly normal, pharynx normal Neck: supple, no JVD Respiratory/Chest: chest non-tender, normal breath sounds Cardiovascular: regular rate, rhythm, no JVD Abdomen: non tender, soft Extremities: normal range of motion, no pedal edema Neurologic/Psychiatric: alert Skin: normal color (Raleigh Moore MD) Laboratory Results Last 24 Hours Test 03/29/16 06:05 03/29/16 06:06 Prothrombin Time 25.4 SECONDS Prothromb Time International Ratio 2.3 Sodium Level 142 mmol/L Potassium Level 4.1 mmol/L Chloride Level 108 mmol/L Carbon Dioxide Level 24 mmol/L Anion Gap 10.0 mmol/L Blood Urea Nitrogen 31 mg/dl Creatinine 1.80 mg/dl Est Creatinine Clear Calc Drug Dose 36.6 ml/min Estimated GFR () 39.5 Estimated GFR (Non- 34.0 BUN/Creatinine Ratio 17.2 Random Glucose 89 mg/dl Calcium Level 8.4 mg/dl (Lacy Diamond PA-C) Assessment and Plan This is a 85 yo M who presents after mechanical fall with multiple transverse process fractures L2-4 with mild displacement. Mechanical Fall with Transverse process fractures -Brace placed in ER. - Pain controlled on percocet. - PT/OT consulted. - Will discharge to [facility] when bed available FRANCO - Cr. increased from 1.5 up to 1.8 this morning - Received 500 mL bolus for hypotension, but will continue NSS at 100mL x 10 hours for now with gentle hydration Hypotension - Overnight SPBs were low intot he 80s, so recieved 500 mL bolus this morning. Pt is asymptomatic at bedside: denies lightheadedness, dizziness - Continue on gentle hydration: NSS @ 100mL/hr x 10 hours, can reassess this evening. Aflutter - Cont coumadin, rate controlled on amiodarone. INR 2.3 HTN - Cont lisinopril, norvasc, HCTZ Hx of carotid stent - Cont plavix Constipation - Will order mirilax and dulcolax. - Cont bowel regimen at time of discharge. BPH - Cont finasteride and flomax CODE STATUS: FULL CODE Disposition: Plan for discharge to [facility] tomorrow, pending Cr. trends down. (Lacy Diamond, PELON) This is a 85 yo M who presents after mechanical fall with multiple transverse process fractures L2-4 with mild displacement. Mechanical Fall with Transverse process fractures Brace placed in ER. Pain controlled on percocet. PT/OT consulted. Will discharge to [facility] when bed available FRANCO Cr. increased from 1.5 up to 1.8 this morning Received 500 mL bolus for hypotension, but will continue NSS at 100mL x 10 hours for now with gentle hydration check renal US Hypotension Overnight SPBs were low intot he 80s, so recieved 500 mL bolus this morning. Pt is asymptomatic at bedside: denies lightheadedness, dizziness Continue on gentle hydration: NSS 100mL/hr x 10 hours, can reassess this evening. Aflutter Cont coumadin, rate controlled on amiodarone. INR 2.3 HTN Cont lisinopril, norvasc, HCTZ Hx of carotid stent Cont plavix Constipation mirilax and dulcolax. Cont bowel regimen at time of discharge. BPH Cont finasteride and flomax CODE STATUS: FULL CODE Disposition: Plan for discharge to [facility] tomorrow, pending Cr. trends down. (Raleigh Moore MD)
[2016-03-29] MEDS ORDERED: BISACODYL 5 MG TABEC PO PRN (13:15)
--- NOTE | 2016-03-29 13:29 | DIAGNOSTIC IMAGING REPORT ---
RENAL ULTRASOUND CLINICAL HISTORY: Acute renal failure. COMPARISON STUDY: CT of the abdomen and pelvis February 02, 2016. TECHNIQUE: Sonography of the kidneys and the urinary bladder was performed. FINDINGS: The right kidney measures 10.1 x 5.5 x 4.5 cm and the left measures 9.5 x 5.9 x 4.5 cm. There is no hydronephrosis. A few subcentimeter renal lesions are difficult to characterize given their small size but likely reflect cysts. Both ureteral jets were identified. There is moderate bilateral renal cortical thinning. IMPRESSION: 1. No hydronephrosis. 2. Moderate bilateral renal cortical thinning. Electronically signed by: Reji Whitley M.D. 03/29/2016 1:27 PM Dictated Date/Time: 03/29/2016 1:25 PM
[2016-03-29] MEDS: WARFARIN SOD 5 MG TAB PO SCH (16:00)
[2016-03-29] MEDS: AMLODIPINE BESYLATE 5 MG TAB PO SCH (20:44)
[2016-03-29] MEDS: SIMVASTATIN 20 MG TAB PO SCH (20:45)
[2016-03-29] MEDS: ZOLPIDEM TARTRATE 10 MG TAB PO SCH (20:46)
[2016-03-30] MEDS: LEVOTHYROXINE 25 MCG TAB PO SCH (05:37)
[2016-03-30 08:09] LABS: INR 3.3 (0.9-1.1); PROTHROMBIN TIME (PATIENT) 37.6 SECONDS (9.0-12.0)
[2016-03-30 08:27] LABS: BUN/CREATININE RATIO 19.5 (10-20); CALCIUM 8.4 mg/dl (8.5-10.1); CREATININE 1.5 mg/dl (0.60-1.40); POTASSIUM 4.2 mmol/L (3.5-5.1)
[2016-03-30] MEDS: FINASTERIDE 5 MG TAB PO SCH (09:04)
[2016-03-30] MEDS: TAMSULOSIN HCL 0.4 MG CAP PO SCH (09:04)
[2016-03-30] MEDS: POLYETHYLENE (MIRALAX) 17 GM PACK PO SCH (09:05)
[2016-03-30] MEDS: AMIODARONE 200 MG TAB PO SCH (09:05)
[2016-03-30] MEDS: CLOPIDOGREL BISULFATE 75 MG TAB PO SCH (09:05)
[2016-03-30 09:11] VITALS: BP 124/60; PULSE 66; TEMP 36.8; O2SAT 98
[2016-03-30 10:13] VITALS: O2SAT 98
[2016-03-30 12:50] VITALS: BP 130/80; PULSE 60; TEMP 36.8; O2SAT 98
--- NOTE | 2016-03-30 14:07 | Progress Note ---
Subjective Subjective Date of Service: Mar 30, 2016. Pt evaluation today including: conversation w/ patient, physical exam, chart review, review of studies, review of inpatient medication list Problem List Medical Problems: (1) Ambulatory dysfunction Status: Acute (2) Contusion of right hip Status: Acute (3) Fall Status: Acute (4) Hematoma of right iliopsoas muscle Status: Acute (5) Multiple transverse process fractures Status: Acute (6) Right hip pain Status: Acute Review of Systems Constitutional: No fever ENT: No hearing loss Respiratory: No cough Breast: No breast lump Abdomen: No pain Male : No dysuria Neurologic: No memory loss Psychiatric: No depression symptoms Endo: No fatigue Physical Exam Vital Signs Vital Signs Past 24 Hours: Date Time Temp Pulse Resp B/P Pulse Ox O2 Delivery O2 Flow Rate FiO2 03/30/16 12:50 36.8 60 20 130/80 98 Room Air 03/30/16 10:13 98 Room Air 03/30/16 09:11 36.8 66 20 124/60 98 Room Air 03/30/16 08:00 Room Air 03/29/16 23:51 36.7 62 16 118/57 96 Room Air 03/29/16 23:25 Room Air 03/29/16 15:40 Room Air 03/29/16 15:00 36.6 71 18 94/62 96 Room Air Physical Exam: General Appearance: WD/WN, no apparent distress Eyes: bilateral eyes normal inspection ENT: hearing grossly normal, pharynx normal Neck: supple, no JVD Respiratory/Chest: chest non-tender, no respiratory distress, no accessory muscle use Cardiovascular: no gallop Abdomen: non tender, no organomegaly Extremities: normal inspection Neurologic/Psychiatric: no motor/sensory deficits, oriented x 3 Skin: warm/dry Medications Medications: Current Inpatient Medications Medications (Trade) Dose Ordered Sig/Ursula Route Start Time Stop Time Status Last Admin Dose Admin Acetaminophen (Tylenol Tab) 650 mg Q4H PRN PO 03/28/16 17:30 04/27/16 17:29 Ondansetron HCl (Zofran Inj) 4 mg Q6H PRN IV 03/28/16 17:30 04/27/16 17:29 Oxycodone/ Acetaminophen (Percocet 5-325MG Tab) 1 tab Q4H PRN PO 03/28/16 17:30 04/11/16 17:29 03/28/16 19:35 1 TAB Amiodarone HCl (Cordarone Tab) 200 mg DAILY PO 03/29/16 09:00 04/28/16 08:59 03/30/16 09:05 200 MG Amlodipine Besylate (Norvasc Tab) 5 mg HS PO 03/28/16 21:00 04/27/16 20:59 03/29/16 20:44 5 MG Clopidogrel Bisulfate (plAVix TAB) 75 mg DAILY PO 03/29/16 09:00 04/28/16 08:59 03/30/16 09:05 75 MG Finasteride (Proscar Tab) 5 mg DAILY PO 03/29/16 09:00 04/28/16 08:59 03/30/16 09:04 5 MG Levothyroxine Sodium (Synthroid Tab) 25 mcg DAILYBB PO 03/29/16 06:00 04/28/16 05:59 03/30/16 05:37 25 MCG Lisinopril (Zestril Tab) 20 mg BID PO 03/28/16 21:00 04/27/16 20:59 Future Hold 03/28/16 20:33 20 MG Simvastatin (Zocor Tab) 20 mg QPM PO 03/28/16 21:00 04/27/16 20:59 03/29/16 20:45 20 MG Tamsulosin HCl (Flomax Cap) 0.4 mg DAILY PO 03/29/16 09:00 04/28/16 08:59 03/30/16 09:04 0.4 MG Warfarin Sodium (Coumadin Tab) 2.5 mg DAILY@1600 PO 03/28/16 20:00 04/27/16 19:59 03/29/16 16:00 2.5 MG Zolpidem Tartrate (Ambien Tab) 10 mg HS PO 03/28/16 21:00 04/27/16 20:59 03/29/16 20:46 10 MG Hydrochlorothiazide (Hydrochlorothiazide Tab) 12.5 mg DAILY PO 03/29/16 09:00 04/28/16 08:59 Future Hold Miscellaneous (Iv Fluids Completed) 1 ea PRN PRN N/A 03/28/16 18:30 03/28/17 18:29 Polyethylene (Miralax Powder Packet) 17 gm DAILY PO 03/29/16 10:45 04/28/16 10:44 03/30/16 09:05 17 GM Bisacodyl (Dulcolax Tab) 5 mg BID PRN PO 03/29/16 13:15 04/28/16 13:14 Laboratory Data Labs: Last 24 Hours Test 03/30/16 07:20 Prothrombin Time 37.6 SECONDS Prothromb Time International Ratio 3.3 Sodium Level 144 mmol/L Potassium Level 4.2 mmol/L Chloride Level 110 mmol/L Carbon Dioxide Level 26 mmol/L Anion Gap 8.0 mmol/L Blood Urea Nitrogen 29 mg/dl Creatinine 1.50 mg/dl Est Creatinine Clear Calc Drug Dose 43.9 ml/min Estimated GFR () 49.2 Estimated GFR (Non- 42.4 BUN/Creatinine Ratio 19.5 Random Glucose 101 mg/dl Calcium Level 8.4 mg/dl Assessment and Plan This is a 85 yo M who presents after mechanical fall with multiple transverse process fractures L2-4 with mild displacement. Mechanical Fall with Transverse process fractures Brace placed in ER. Pain controlled on percocet. PT/OT consulted. FRANCO Cr. at 1.5 from 1.8 this morning pt received NSS at 100mL for 10 hours renal US: 1. No hydronephrosis. 2. Moderate bilateral renal cortical thinning. Hypotension improved with hydration Aflutter hold coumadin, rate controlled on amiodarone. INR 3.3 HTN Cont lisinopril, norvasc, HCTZ Hx of carotid stent Cont plavix Constipation mirilax and dulcolax. Cont bowel regimen at time of discharge. BPH Cont finasteride and flomax DVT proph coumadin, INR is 3.3 CODE STATUS: FULL CODE Disposition: Plan for discharge to SNF on friday if creatinine continues to improve
[2016-03-30 14:49] VITALS: BP 102/66; PULSE 67; TEMP 36.7; O2SAT 93
[2016-03-30 16:03] VITALS: BP 146/78; PULSE 72; TEMP 36.5; O2SAT 95
[2016-03-30] MEDS ORDERED: NURSING VERBAL MED ORDER ONE (17:00)
[2016-03-30] MEDS ORDERED: SOD PHOSPHATE/SOD BIPHOSPHATE ENEMA 132 ML BTL PR ONE (17:15)
[2016-03-30] MEDS ORDERED: LEVOTHYROXINE 50 MCG TAB PO ONE (17:15)
[2016-03-30] MEDS: ZOLPIDEM TARTRATE 10 MG TAB PO SCH (20:46)
[2016-03-30] MEDS: SIMVASTATIN 20 MG TAB PO SCH (20:47)
[2016-03-30] MEDS: AMLODIPINE BESYLATE 5 MG TAB PO SCH (20:47)
[2016-03-30 22:53] VITALS: BP 112/72; PULSE 60; TEMP 36.8; O2SAT 97
[2016-03-31] MEDS: LEVOTHYROXINE 75 MCG TAB PO SCH (05:37)
[2016-03-31 06:05] LABS: PROTHROMBIN TIME (PATIENT) 46.8 SECONDS (9.0-12.0)
[2016-03-31 06:07] LABS: INR 4.1 (0.9-1.1)
[2016-03-31 07:40] VITALS: BP 125/71; PULSE 53; TEMP 36.5; O2SAT 97
[2016-03-31] MEDS: FINASTERIDE 5 MG TAB PO SCH (08:40)
[2016-03-31] MEDS: TAMSULOSIN HCL 0.4 MG CAP PO SCH (08:40)
[2016-03-31] MEDS: AMIODARONE 200 MG TAB PO SCH (08:40)
[2016-03-31] MEDS: CLOPIDOGREL BISULFATE 75 MG TAB PO SCH (08:40)
[2016-03-31] MEDS: POLYETHYLENE (MIRALAX) 17 GM PACK PO SCH (08:40)
--- NOTE | 2016-03-31 13:45 | Progress Note ---
Subjective Subjective Date of Service: Mar 31, 2016. Pt evaluation today including: conversation w/ patient, physical exam, chart review, review of studies, review of inpatient medication list Problem List Medical Problems: (1) Ambulatory dysfunction Status: Acute (2) Contusion of right hip Status: Acute (3) Fall Status: Acute (4) Hematoma of right iliopsoas muscle Status: Acute (5) Multiple transverse process fractures Status: Acute (6) Right hip pain Status: Acute Review of Systems Constitutional: No fever, No weight loss Eyes: No worsening of vision ENT: No hearing loss Respiratory: No cough Cardiac: No chest pain Abdomen: No pain Male : No dysuria Neurologic: No memory loss Psychiatric: No depression symptoms Heme: No abnormal bleeding/bruising Physical Exam Vital Signs Vital Signs Past 24 Hours: Date Time Temp Pulse Resp B/P Pulse Ox O2 Delivery O2 Flow Rate FiO2 03/31/16 07:40 36.5 53 18 125/71 97 03/31/16 07:25 Room Air 03/30/16 23:25 Room Air 03/30/16 22:53 36.8 60 16 112/72 97 Room Air 03/30/16 16:38 Room Air 03/30/16 16:03 36.5 72 20 146/78 95 Room Air 03/30/16 14:49 36.7 67 18 102/66 93 Room Air Physical Exam: General Appearance: WD/WN, no apparent distress Eyes: bilateral eyes normal inspection ENT: hearing grossly normal, pharynx normal Neck: supple, no JVD Respiratory/Chest: lungs clear, no respiratory distress Cardiovascular: regular rate, rhythm, no gallop Abdomen: normal bowel sounds, soft Extremities: non-tender, no pedal edema Neurologic/Psychiatric: alert, normal mood/affect Skin: normal color, warm/dry Medications Medications: Current Inpatient Medications Medications (Trade) Dose Ordered Sig/Ursula Route Start Time Stop Time Status Last Admin Dose Admin Acetaminophen (Tylenol Tab) 650 mg Q4H PRN PO 03/28/16 17:30 04/27/16 17:29 Ondansetron HCl (Zofran Inj) 4 mg Q6H PRN IV 03/28/16 17:30 04/27/16 17:29 Oxycodone/ Acetaminophen (Percocet 5-325MG Tab) 1 tab Q4H PRN PO 03/28/16 17:30 04/11/16 17:29 03/28/16 19:35 1 TAB Amiodarone HCl (Cordarone Tab) 200 mg DAILY PO 03/29/16 09:00 04/28/16 08:59 03/31/16 08:40 200 MG Amlodipine Besylate (Norvasc Tab) 5 mg HS PO 03/28/16 21:00 04/27/16 20:59 03/30/16 20:47 5 MG Clopidogrel Bisulfate (plAVix TAB) 75 mg DAILY PO 03/29/16 09:00 04/28/16 08:59 03/31/16 08:40 75 MG Finasteride (Proscar Tab) 5 mg DAILY PO 03/29/16 09:00 04/28/16 08:59 03/31/16 08:40 5 MG Lisinopril (Zestril Tab) 20 mg BID PO 03/28/16 21:00 04/27/16 20:59 Future Hold 03/28/16 20:33 20 MG Simvastatin (Zocor Tab) 20 mg QPM PO 03/28/16 21:00 04/27/16 20:59 03/30/16 20:47 20 MG Tamsulosin HCl (Flomax Cap) 0.4 mg DAILY PO 03/29/16 09:00 04/28/16 08:59 03/31/16 08:40 0.4 MG Warfarin Sodium (Coumadin Tab) 2.5 mg DAILY@1600 PO 03/28/16 20:00 04/27/16 19:59 Future Hold 03/29/16 16:00 2.5 MG Zolpidem Tartrate (Ambien Tab) 10 mg HS PO 03/28/16 21:00 04/27/16 20:59 03/30/16 20:46 10 MG Hydrochlorothiazide (Hydrochlorothiazide Tab) 12.5 mg DAILY PO 03/29/16 09:00 04/28/16 08:59 Future Hold Miscellaneous (Iv Fluids Completed) 1 ea PRN PRN N/A 03/28/16 18:30 03/28/17 18:29 Polyethylene (Miralax Powder Packet) 17 gm DAILY PO 03/29/16 10:45 04/28/16 10:44 03/31/16 08:40 17 GM Bisacodyl (Dulcolax Tab) 5 mg BID PRN PO 03/29/16 13:15 04/28/16 13:14 03/30/16 15:57 5 MG Levothyroxine Sodium (Synthroid Tab) 75 mcg DAILYBB PO 03/31/16 06:00 04/30/16 05:59 03/31/16 05:37 75 MCG Laboratory Data Labs: Last 24 Hours Test 03/31/16 05:32 Prothrombin Time 46.8 SECONDS Prothromb Time International Ratio 4.1 Assessment and Plan This is a 85 yo M who presents after mechanical fall with multiple transverse process fractures L2-4 with mild displacement. Mechanical Fall with Transverse process fractures Brace placed in ER. Pain controlled on percocet. PT/OT consulted. FRANCO Cr. at 1.5 from 1.8 yesterday, improved after IVF, recheck BMP renal US: 1. No hydronephrosis. 2. Moderate bilateral renal cortical thinning. Hypotension improved with hydration Aflutter hold coumadin, rate controlled on amiodarone. INR 4.1 HTN Cont lisinopril, norvasc, HCTZ hypothyroidism, patient actually takes 75 mcg levothyroxine daily (confirmed with the patient) Hx of carotid stent Cont plavix Constipation mirilax and dulcolax. Cont bowel regimen at time of discharge. BPH Cont finasteride and flomax DVT proph coumadin, INR is 4.1 CODE STATUS: FULL CODE Disposition: Plan for discharge to SNF early next week if creatinine continues to improve
[2016-03-31 15:02] VITALS: BP 112/70; PULSE 65; TEMP 36.7; O2SAT 96
[2016-03-31 15:12] LABS: BUN/CREATININE RATIO 20.3 (10-20); CALCIUM 8.8 mg/dl (8.5-10.1); CREATININE 1.4 mg/dl (0.60-1.40); POTASSIUM 4.7 mmol/L (3.5-5.1)
[2016-03-31 15:35] VITALS: O2SAT 96
[2016-03-31] MEDS: ZOLPIDEM TARTRATE 10 MG TAB PO SCH (20:34)
[2016-03-31] MEDS: SIMVASTATIN 20 MG TAB PO SCH (20:34)
[2016-03-31] MEDS: AMLODIPINE BESYLATE 5 MG TAB PO SCH (20:34)
[2016-03-31 22:55] VITALS: BP 147/76; PULSE 69; TEMP 36.6; O2SAT 96
[2016-04-01] MEDS: LEVOTHYROXINE 75 MCG TAB PO SCH (05:46)
[2016-04-01 06:35] LABS: PROTHROMBIN TIME (PATIENT) 42.9 SECONDS (9.0-12.0)
[2016-04-01 06:41] LABS: INR 3.8 (0.9-1.1)
[2016-04-01 06:57] LABS: BUN/CREATININE RATIO 17.9 (10-20); CALCIUM 8.4 mg/dl (8.5-10.1); CREATININE 1.5 mg/dl (0.60-1.40); POTASSIUM 4.3 mmol/L (3.5-5.1)
[2016-04-01 07:17] VITALS: BP 120/75; PULSE 57; TEMP 36.6; O2SAT 97
[2016-04-01 08:28] VITALS: BP 145/77; PULSE 60
[2016-04-01] MEDS: TAMSULOSIN HCL 0.4 MG CAP PO SCH (08:31)
[2016-04-01] MEDS: CLOPIDOGREL BISULFATE 75 MG TAB PO SCH (08:31)
[2016-04-01] MEDS: AMIODARONE 200 MG TAB PO SCH (08:31)
[2016-04-01] MEDS: POLYETHYLENE (MIRALAX) 17 GM PACK PO SCH (08:31)
[2016-04-01] MEDS: FINASTERIDE 5 MG TAB PO SCH (08:31)
[2016-04-01 15:24] VITALS: BP 123/78; PULSE 68; TEMP 36.7; O2SAT 95
--- NOTE | 2016-04-01 15:27 | Progress Note ---
Subjective Date of Service: Apr 01, 2016. Subjective Pt evaluation today including: conversation w/ patient, conversation w/ family , chart review, lab review, review of studies Problem List Medical Problems: (1) Ambulatory dysfunction Status: Acute (2) Contusion of right hip Status: Acute (3) Fall Status: Acute (4) Hematoma of right iliopsoas muscle Status: Acute (5) Multiple transverse process fractures Status: Acute (6) Right hip pain Status: Acute Review of Systems Constitutional: No chills, No fever Eyes: No worsening of vision ENT: No hearing loss Respiratory: No cough, No shortness of breath Cardiac: No chest pain, No edema Abdomen: No nausea, No pain, No vomiting Musculoskeletal: No joint pain, No muscle pain Male : No dysuria Neurologic: No paralysis Psychiatric: No depression symptoms Medications Current Inpatient Medications Medications (Trade) Dose Ordered Sig/Ursula Route Start Time Stop Time Status Last Admin Dose Admin Acetaminophen (Tylenol Tab) 650 mg Q4H PRN PO 03/28/16 17:30 04/27/16 17:29 Ondansetron HCl (Zofran Inj) 4 mg Q6H PRN IV 03/28/16 17:30 04/27/16 17:29 Oxycodone/ Acetaminophen (Percocet 5-325MG Tab) 1 tab Q4H PRN PO 03/28/16 17:30 04/11/16 17:29 03/28/16 19:35 1 TAB Amiodarone HCl (Cordarone Tab) 200 mg DAILY PO 03/29/16 09:00 04/28/16 08:59 04/01/16 08:31 200 MG Amlodipine Besylate (Norvasc Tab) 5 mg HS PO 03/28/16 21:00 04/27/16 20:59 03/31/16 20:34 5 MG Clopidogrel Bisulfate (plAVix TAB) 75 mg DAILY PO 03/29/16 09:00 04/28/16 08:59 04/01/16 08:31 75 MG Finasteride (Proscar Tab) 5 mg DAILY PO 03/29/16 09:00 04/28/16 08:59 04/01/16 08:31 5 MG Lisinopril (Zestril Tab) 20 mg BID PO 03/28/16 21:00 04/27/16 20:59 Future Hold 03/28/16 20:33 20 MG Simvastatin (Zocor Tab) 20 mg QPM PO 03/28/16 21:00 04/27/16 20:59 03/31/16 20:34 20 MG Tamsulosin HCl (Flomax Cap) 0.4 mg DAILY PO 03/29/16 09:00 04/28/16 08:59 04/01/16 08:31 0.4 MG Warfarin Sodium (Coumadin Tab) 2.5 mg DAILY@1600 PO 03/28/16 20:00 04/27/16 19:59 Future Hold 03/29/16 16:00 2.5 MG Zolpidem Tartrate (Ambien Tab) 10 mg HS PO 03/28/16 21:00 04/27/16 20:59 03/31/16 20:34 10 MG Hydrochlorothiazide (Hydrochlorothiazide Tab) 12.5 mg DAILY PO 03/29/16 09:00 04/28/16 08:59 Future Hold Miscellaneous (Iv Fluids Completed) 1 ea PRN PRN N/A 03/28/16 18:30 03/28/17 18:29 Polyethylene (Miralax Powder Packet) 17 gm DAILY PO 03/29/16 10:45 04/28/16 10:44 04/01/16 08:31 17 GM Bisacodyl (Dulcolax Tab) 5 mg BID PRN PO 03/29/16 13:15 04/28/16 13:14 03/30/16 15:57 5 MG Levothyroxine Sodium (Synthroid Tab) 75 mcg DAILYBB PO 03/31/16 06:00 04/30/16 05:59 04/01/16 05:46 75 MCG Objective Vital Signs Date Time Temp Pulse Resp B/P Pulse Ox O2 Delivery O2 Flow Rate FiO2 04/01/16 08:28 60 145/77 04/01/16 07:20 Room Air 04/01/16 07:17 36.6 57 18 120/75 97 Room Air 03/31/16 23:45 Room Air 03/31/16 22:55 36.6 69 20 147/76 96 Room Air 03/31/16 15:35 96 Room Air Physical Exam General Appearance: WD/WN, no apparent distress Eyes: normal inspection, PERRL, EOMI ENT: normal ENT inspection, hearing grossly normal Neck: supple, thyroid normal Respiratory/Chest: chest non-tender, lungs clear, normal breath sounds, no respiratory distress, no accessory muscle use Cardiovascular: regular rate, rhythm, no edema, no JVD, + diastolic murmur, + gallop/S3 Abdomen: normal bowel sounds, non tender, soft, no organomegaly, no pulsatile mass Extremities: normal range of motion, non-tender, normal inspection, no pedal edema 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, no motor/sensory deficits, alert, normal mood/affect, oriented x 3 Skin: normal color, warm/dry, no rash Laboratory Results Last 24 Hours Test 04/01/16 05:25 Prothrombin Time 42.9 SECONDS Prothromb Time International Ratio 3.8 Sodium Level 143 mmol/L Potassium Level 4.3 mmol/L Chloride Level 109 mmol/L Carbon Dioxide Level 25 mmol/L Anion Gap 9.0 mmol/L Blood Urea Nitrogen 27 mg/dl Creatinine 1.50 mg/dl Est Creatinine Clear Calc Drug Dose 43.9 ml/min Estimated GFR () 49.2 Estimated GFR (Non- 42.4 BUN/Creatinine Ratio 17.9 Random Glucose 101 mg/dl Calcium Level 8.4 mg/dl Assessment and Plan This is a 85 yo M who presents after mechanical fall with multiple transverse process fractures L2-4 with mild displacement. Mechanical Fall with Transverse process fractures Dr. Holt of spinal orthopedics called by ER and recommended giving the patient an LSO brace. Brace placed in ER. Pain controlled on percocet. PT/OT consulted. FRANCO/CKD Cr. at 1.5 from 1.8 yesterday, improved after IVF, recheck BMP, back to base line CKD stage 3 renal US: 1. No hydronephrosis. 2. Moderate bilateral renal cortical thinning. Hx of CVA Hypotension improved with hydration Aflutter by Hx, currently sinus rythm hold coumadin, rate controlled on amiodarone. INR subratherapeutic on admission Hx of DVT on 2011, questionable small peripheral PE during that admission HTN Cont lisinopril, norvasc, HCTZ hypothyroidism, patient actually takes 75 mcg levothyroxine daily (confirmed with the patient) Hx of carotid stent Cont plavix Constipation mirilax and dulcolax. Cont bowel regimen at time of discharge. BPH Cont finasteride and flomax DVT proph coumadin, INR is elevated, D/W patient and family risks versus benefits, being somewhat a fall risk, they will discuss it with Dr. Gonzalez CODE STATUS: FULL CODE Disposition: Plan for discharge to SNF tomorrow
[2016-04-01] MEDS: SIMVASTATIN 20 MG TAB PO SCH (21:41)
[2016-04-01] MEDS: AMLODIPINE BESYLATE 5 MG TAB PO SCH (21:41)
[2016-04-01] MEDS: ZOLPIDEM TARTRATE 10 MG TAB PO SCH (21:45)
[2016-04-01 21:46] VITALS: BP 135/81; PULSE 60
[2016-04-01 23:30] VITALS: BP 124/64; PULSE 57; TEMP 36.5; O2SAT 96
[2016-04-02 05:43] LABS: BASO % 0.4 %; BASO ABS # 0.02 K/uL (0-0.2); COMPLETE YES; EOS % 8.3 %; HEMATOCRIT 33.3 % (42-52); LYMPH % 36.3 %; LYMPH ABS # 1.92 K/uL (1.2-3.4); MEAN CELL VOLUME 96.5 fL (80-100); MEAN CORPUSCULAR HEMOGLOBIN 32.2 pg (25-34); MEAN CORPUSCULAR HGB CONC 33.3 g/dl (32-36); MEAN PLATELET VOLUME 10.2 fL (7.4-10.4); MONO % 9.3 %; NEUT % 45.7 %; PLATELET COUNT 217 K/uL (130-400); RED BLOOD COUNT 3.45 M/uL (4.7-6.1); WHITE BLOOD COUNT 5.29 K/uL (4.8-10.8)
[2016-04-02] MEDS: LEVOTHYROXINE 75 MCG TAB PO SCH (06:17)
[2016-04-02 06:33] LABS: BUN/CREATININE RATIO 18.5 (10-20); CALCIUM 8.3 mg/dl (8.5-10.1); CREATININE 1.3 mg/dl (0.60-1.40); MAGNESIUM 2.6 mg/dl (1.8-2.4); POTASSIUM 4.3 mmol/L (3.5-5.1)
[2016-04-02 06:36] LABS: ALB/GLOB RATIO 1.1 (0.9-2); PHOSPHORUS 2.8 mg/dl (2.5-4.9)
[2016-04-02 06:58] VITALS: BP 152/86; PULSE 57; TEMP 36.6; O2SAT 96
[2016-04-02] MEDS: TAMSULOSIN HCL 0.4 MG CAP PO SCH (08:28)
[2016-04-02] MEDS: POLYETHYLENE (MIRALAX) 17 GM PACK PO SCH (08:28)
[2016-04-02] MEDS: AMIODARONE 200 MG TAB PO SCH (08:28)
[2016-04-02] MEDS: FINASTERIDE 5 MG TAB PO SCH (08:29)
[2016-04-02] MEDS: CLOPIDOGREL BISULFATE 75 MG TAB PO SCH (08:49)
[2016-04-02 10:32] VITALS: BP 152/86; PULSE 57; TEMP 36.6; O2SAT 96
[2016-04-02] MEDS ORDERED: MRLP17 PO (13:06)
[2016-04-02] MEDS ORDERED: SENN-65 PO (13:06)
[2016-04-02] MEDS ORDERED: BISA-16 PO (13:06)
[2016-04-02] MEDS ORDERED: TRAM-453 PO (13:13)
[2016-04-02] MEDS ORDERED: CHOLCAP2 PO (13:13)
--- NOTE | 2016-04-02 13:14 | Discharge Instructions ---
Discharge Instructions Admission Admission Date: Mar 30, 2016 at 12:13 Admission Diagnosis: Hypotension. Discharge Care Plan - Problem: Medical Problems: (1) Ambulatory dysfunction (2) Contusion of right hip (3) Fall (4) Multiple transverse process fractures Care Plan - Goal(s): Decrease discomfort Care Plan - Instructions: Activity Recommendations: lifting limitation Recommended Home Diet: 1800 Rodolfo Wt Reduction, Regular VTE Core Measure Inpt VTE Proph given/why not?: Warfarin (Coumadin) Follow Up Follow-Up: follow up with Dr. Gonzalez in one week to decide about Coumadin continuation follow up in [address] Holt of spinal orthopedics [facility] Recommendations: Call your doctor if: * Temperature above 101 degrees * Pain not relieved by pain medicine ordered * There is increased drainage or redness from any incision * You have any unanswered questions or concerns. Your Doctors Instructions noted above were prepared by provider Colette Major.
[2016-04-02] MEDS ORDERED: WARF2TAB PO (13:19)
--- NOTE | 2016-04-02 20:16 | Discharge Summary ---
Discharge Summary Admission Date: Mar 30, 2016 at 12:13 Discharge Date: Apr 02, 2016 Discharge Disposition: Rehab Problems/Secondary Diagnoses: This is a 85 yo M who presents after mechanical fall with multiple transverse process fractures L2-4 with mild displacement. Mechanical Fall with Transverse process fractures L2-L4 FRANCO/CKD Hx of CVA Hypotension Aflutter by Hx, currently sinus rythm Hx of DVT on 2011, questionable small peripheral PE during that admission HTN hypothyroidism Hx of carotid stent Constipation BPH Immunizations: Have You Had Influenza Vaccine: Yes Influenza Vaccine Date: Nov 29, 2010 History of Tetanus Vaccine?: utd History of Pneumococcal: Unknown Pneumococcal Date: Dec 02, 2009 History of Hepatitis B Vaccine: Unknown Medication Reconciliation New Medications: Bisacodyl (Dulcolax) 5 Mg Tab 2 TAB PO UD PRN for Constipation for 1 Day, #20 TAB every 48 hours prn no bowel movement for 48 hours Cholecalciferol (D3-50) 50,000 Unit Cap 1 CAP PO WK for 84 Days, #12 CAP Senna/Docusate Sod (Senokot S) 1 Tab Tab 1 TAB PO DAILY for 30 Days, #30 TAB Tramadol Hcl (Ultram) 50 Mg Tab 1 TAB PO TID PRN for Pain for 30 Days, #30 TAB Warfarin Sodium (Coumadin) 2 Mg Tab 1 TAB PO DAILY for 30 Days, #30 TAB 3 Refills start after INR is below 2.5 take as directed Polyethylene (Miralax) 17 Gm Pow 17 GM PO DAILY for 30 Days, #30 Continued Medications: Amiodarone Hcl (Cordarone *) 200 Mg Tab 200 MG PO DAILY, 0 Refills Amlodipine Besylate (Norvasc) 5 Mg Tab 5 MG PO HS, TAB SEE COMMENTS. Clopidogrel (Plavix) 75 Mg Tab 75 MG PO DAILY, TAB Finasteride (Proscar) 5 Mg Tab 5 MG PO DAILY, TAB Hydrochlorothiazide (Hydrochlorothiazide) 12.5 Mg Tab 12.5 MG PO DAILY Levothyroxine Sodium (Synthroid) 25 Mcg Tab 1 TAB PO DAILY for 30 Days, #30 TAB 5 Refills THIS MAY NOT BE THE CORRECT NAME OF THYROID MEDICATION Lisinopril (Zestril) 20 Mg Tab 20 MG PO BID Simvastatin (Zocor) 20 Mg Tab 20 MG PO QPM TAKE THIS MEDICATION WITH SUPPER. Tamsulosin Hcl (Flomax *) 0.4 Mg Cap 0.4 MG PO DAILY, 0 Refills Zolpidem Tartrate (Ambien) 10 Mg Tab 10 MG PO HS, 0 Refills Discontinued Medications: Warfarin Sod (Jantoven) 5 Mg Tab 2.5 MG PO DAILY, TAB TAKE HALF OF A 5 MG TABLET (2.5 MG) EVERY DAY OR TAKE OTHERWISE DIRECTED BY ANTICOAGULATION CLINIC/MD. Referrals At Discharge Continued Follow up Referrals: Physician Referral - Within 1-2 Weeks with Rafa Gonzalez M.D. Physician Referral with Orlando Santoyo M.D. Urologist Referral - Within 2 Weeks with Raman Aj MD, Urology Discharge Exam Review of Systems: Constitutional: No chills, No fever Eyes: No worsening of vision ENT: No hearing loss, No unusual epistaxis Respiratory: No cough, No sputum, No wheezing Cardiovascular: No chest pain, No orthopnea Abdomen: No diarrhea, No nausea, No pain, No vomiting Musculoskeletal: + joint pain Genitourinary - Male: No dysuria, No hematuria Neurologic: No memory loss, No paralysis Psychiatric: No depression symptoms Endocrine: No fatigue Hematologic / Lymphatic: No abnormal bleeding/bruising Integumentary: No rash Hospital Course This is a 85 yo M who presents after mechanical fall with multiple transverse process fractures L2-4 with mild displacement. [facility] Fall with Transverse process fractures Dr. Holt of spinal orthopedics called by ER and recommended giving the patient an LSO brace. Brace placed in ER. Pain controlled on percocet. PT/OT consulted, he did well with PT and will be transferred today to rehab given Vit D supplement empirically for his FRANCO/CKD Cr. at 1.5 from 1.8 yesterday, improved after IVF,back to base line CKD stage 3 renal US wqas done, results as below: 1. No hydronephrosis. 2. Moderate bilateral renal cortical thinning. Hypotension on admission improved with hydration, currently hypertensive and restarted lisinopril, norvasc, HCTZ for his Aflutter by Hx, currently sinus rythm / coumadin coagulopathy hold coumadin, rate controlled on amiodarone. INR subratherapeutic on admission He was instructed to restart coumadin when INR is below 2.5 on a lower dose (he was on 2.5mg po daily, decreased to 2mg po daily with close monitoring to INR as an out patient) if continues to fall, discontinuation of coumadin can be considered, D/W family for Hx of DVT on 2011, questionable small peripheral PE during that admission, continue coumadin when INR is below 2.5 for hypothyroidism, continued synthroid Hx of carotid stent Continued plavix for Constipation he was given mirilax and dulcolax. for BPH Continued finasteride and flomax was stable today to be discharged to SNF This includes examination of the patient, discharge planning, medication reconciliation, and communication with other providers. Discharge Instructions Please refer to the electronic Patient Visit Report (Discharge Instructions) for additional information.
== END 2016-04-02 14:40 | DRG 552 ==
LOC: ENRESERVTM → ENRESERVDT → EDBD 08:57 → C.EDA 09:03 → C.MSW 17:21 → OBSVTOIN 03-30 12:13
PROVIDERS: ADMIT Hospitalist; ATTEND Hospitalist
DX: S32.028A Other fracture of second lumbar vertebra, initial encounter for closed fracture (principal); N17.9 Acute kidney failure, unspecified; I48.92 Unspecified atrial flutter; S32.038A Other fracture of third lumbar vertebra, initial encounter for closed fracture; S32.048A Other fracture of fourth lumbar vertebra, initial encounter for closed fracture; S70.01XA Contusion of right hip, initial encounter; I12.9 Hypertensive chronic kidney disease with stage 1 through stage 4 chronic kidney disease, or unspecified chronic kidney disease; N18.3 Chronic kidney disease, stage 3 (moderate); E03.9 Hypothyroidism, unspecified; E78.5 Hyperlipidemia, unspecified; R26.89 Other abnormalities of gait and mobility; N40.0 Benign prostatic hyperplasia without lower urinary tract symptoms; W18.30XA Fall on same level, unspecified, initial encounter; K59.00 Constipation, unspecified; N28.89 Other specified disorders of kidney and ureter; Y92.002 Bathroom of unspecified non-institutional (private) residence as the place of occurrence of the external cause; I25.10 Atherosclerotic heart disease of native coronary artery without angina pectoris; I95.9 Hypotension, unspecified; Z86.718 Personal history of other venous thrombosis and embolism; Z86.73 Personal history of transient ischemic attack (TIA), and cerebral infarction without residual deficits; Z95.5 Presence of coronary angioplasty implant and graft; Z23 Encounter for immunization; Z79.899 Other long term (current) drug therapy; Z79.02 Long term (current) use of antithrombotics/antiplatelets; Z79.01 Long term (current) use of anticoagulants

== ENCOUNTER 2016-04-14 15:40 | Inpatient (IN) | payer OTHER ==
[~2016-04-14] VITALS: Ht 177.8 cm; Wt 103.8 kg
[~2016-04-14 15:40] MED LIST changes: +CHOLCAP2 PO; +LEVO25TA PO; +MRLP17 PO; -OXYC1TAB3 PO; +SENN-65 PO; +TRAM-453 PO; +WARF2TAB PO; -WARF5TAB7 PO
[2016-04-14] MEDS ORDERED: CEFTRIAXONE SOD INJ 1 GM ADDVIAL IV STA (16:38)
[2016-04-14] MEDS ORDERED: SODIUM CHLORIDE 0.9% 1000ML 1,000 ML IV STA ×2 (16:38→18:02)
[2016-04-14] MEDS ORDERED: PIPERACILLIN/TAZOBACTAM 4.5 GM/100ML D5W IV STA (16:38)
--- NOTE | 2016-04-14 16:56 | DIAGNOSTIC IMAGING REPORT ---
CHEST ONE VIEW PORTABLE CLINICAL HISTORY: Evaluate Fever/Sepsis dyspnea COMPARISON STUDY: 03/28/2016 FINDINGS: The bones soft tissues and hemidiaphragms are normal. The cardiomediastinal silhouette is normal. The lungs are clear. The pulmonary vasculature is normal. IMPRESSION: Negative chest. Electronically signed by: Aldo Brooks M.D. 04/14/2016 4:54 PM Dictated Date/Time: 04/14/2016 4:54 PM
[2016-04-14 17:41] LABS: HEMATOCRIT 35.1 % (42-52); MEAN CORPUSCULAR HEMOGLOBIN 32.4 pg (25-34); MEAN PLATELET VOLUME 10.2 fL (7.4-10.4); PLATELET COUNT 193 K/uL (130-400); RED BLOOD COUNT 3.58 M/uL (4.7-6.1); WHITE BLOOD COUNT 18.92 K/uL (4.8-10.8)
[2016-04-14 17:50] LABS: INR 2.2 (0.9-1.1); PARTIAL THROMBOPLASTIN RATIO 1.5; PROTHROMBIN TIME (PATIENT) 24.8 SECONDS (9.0-12.0)
[2016-04-14] MEDS ORDERED: ACET325T96 PO (17:54)
[2016-04-14] MEDS ORDERED: TAMS0.4C38 PO (17:54)
[2016-04-14] MEDS ORDERED: CEFT1INJ57 IM (17:54)
[2016-04-14] MEDS ORDERED: SENN-65 PO (17:54)
[2016-04-14] MEDS ORDERED: [UNRECOGNIZED DRUG - CODE] PO (17:54)
[2016-04-14] MEDS ORDERED: AMIO200T4 PO (17:54)
[2016-04-14] MEDS ORDERED: IPRASOL4 INH (17:54)
[2016-04-14] MEDS ORDERED: ZOLP5TAB PO (17:54)
[2016-04-14 17:59] LABS: BASO % 0.1 %; BASO ABS # 0.01 K/uL (0-0.2); COMPLETE YES; DOHLE BODIES 1+; IG% 0.3 %; LYMPH % 4.5 %; LYMPH ABS # 0.86 K/uL (1.2-3.4); MONO % 3.9 %; NEUT % 91.2 %
[2016-04-14 18:00] LABS: ALT/SGPT 28 U/L (12-78); BLOOD UREA NITROGEN 38 mg/dl (7-18); CALCIUM 8.1 mg/dl (8.5-10.1); CARBON DIOXIDE 27 mmol/L (21-32); CHLORIDE 105 mmol/L (98-107); GLUCOSE 148 mg/dl (70-99); POTASSIUM 4.3 mmol/L (3.5-5.1); SODIUM 140 mmol/L (136-145)
[2016-04-14 18:04] LABS: ALKALINE PHOSPHATASE 79 U/L (45-117); AST/SGOT 42 U/L (15-37); CKMB/CK RATIO 0.3 (0-3.0)
--- NOTE | 2016-04-14 18:16 | EMERGENCY ROOM VISIT NOTE ---
History Report prepared by Ruby: Laureen Hector Under the Supervision of: Dr. Tyree Snell D.O. First contact with patient: 16:34 Chief Complaint: FEVER Stated Complaint: FEVER, CONFUSION History of Present Illness The patient is a 85 year old male who presents to the Emergency Room with complaints of intermittent episodes of fever of 103 beginning last night. Per the patient's family, yesterday he began to have chills, shortness of breath, a fever of 103 and became very confused. This morning the patient woke up with no fever however he was still confused. This afternoon the patient had a fever of 101 again, weakness and fatigue. The patient also has pain and redness to his left lower leg. He is currently staying at [facility] to recover from a recent fall. Source of History: family Onset: yesterday evening Position: other (global) Symptom Intensity: 101-103 Quality: other (fever) Timing: intermittent Associated Symptoms: + SOB, + chills, + fatigue, + weakness Review of Systems See HPI for pertinent positives & negatives. A total of 10 systems reviewed and were otherwise negative. Past Medical & Surgical Medical Problems: (1) Acute Renal Failure, Unspecified (2) Coron Atheroscler Nos Type Vessel, Craig Or Graft (3) Cva (4) Hyperlipidemia Nec/Nos (5) Hypertension Nos (6) Hypotension (7) Intracerebral Hemorrhage Family History No pertinent family history Social History Smoking Status: Never Smoker Alcohol Use: none Drug Use: none Marital Status: Housing Status: retirement Occupation Status: retired Current/Historical Medications Scheduled Amiodarone Hcl (Cordarone), 200 MG PO DAILY Amlodipine Besylate (Norvasc), 5 MG PO HS Ceftriaxone Sod (Rocephin), 1 GM IM QPM Cholecalciferol (D3-50), 1 CAP PO WK Clopidogrel (Plavix), 75 MG PO DAILY Finasteride (Proscar), 5 MG PO DAILY Hydrochlorothiazide (Hydrochlorothiazide), 12.5 MG PO DAILY Levothyroxine Sodium (Synthroid), 1 TAB PO DAILY Lisinopril (Zestril), 20 MG PO AMPM Senna/Docusate Sod (Senokot S), 1 TAB PO QAM Simvastatin (Zocor), 20 MG PO QPM Tamsulosin Hcl (Flomax), 0.4 MG PO HS Warfarin Sodium (Coumadin), 1 TAB PO DAILY Zolpidem Tartrate (Ambien), 5 MG PO HS Scheduled PRN Acetaminophen Tab (Tylenol), 650 MG PO Q6 PRN for Pain Ipratropium-Albuterol (Duoneb), 1 TREATMENT INH Q6 PRN for SOB/Wheezing Polyethylene Glycol 3350 (Glycolax), 17 GM PO UD PRN for Constipation Tramadol Hcl (Ultram), 1 TAB PO TID PRN for Pain Allergies Coded Allergies: No Known Allergies (Verified , NONE, 03/02/14) Physical Exam Vital Signs Date Time Temp Pulse Resp B/P Pulse Ox O2 Delivery O2 Flow Rate FiO2 04/14/16 18:03 71 16 89/48 97 Room Air 04/14/16 17:42 36.8 70 16 90/50 97 Room Air 04/14/16 16:18 76 04/14/16 16:09 97 Room Air 04/14/16 16:05 36.7 79 16 114/54 97 Room Air Physical Exam CONSTITUTIONAL/VITAL SIGNS: Reviewed / noted above. GENERAL: Non-toxic in appearance. INTEGUMENTARY: Warm, dry, and [place]. HEAD: Normocephalic. EYES: without scleral icterus or trauma. ENT/OROPHARYNX: clear and moist. LYMPHADENOPATHY/NECK: Is supple without lymphadenopathy or meningismus. RESPIRATORY: Lungs clear and equal. CARDIOVASCULAR: Regular rate and rhythm. GI/ABDOMEN: Soft and nontender. No organomegaly or pulsatile mass. No rebound or guarding. Normal bowel sounds. EXTREMITIES: Edema and erythema to left lower leg. There are a few scabs from recent injury noted in left medial ankle region. BACK: No CVA tenderness. NEUROLOGICAL: Intact without focal deficits. PSYCHIATRIC: normal affect. MUSCULOSKELETAL: Normally developed with good muscle tone. Medical Decision & Procedures ER Provider Diagnostic Interpretation: X ray results and stated below per my interpretation and radiologist interpretation. Other radiology results and stated below per my review and radiologist interpretation: CHEST ONE VIEW PORTABLE CLINICAL HISTORY: Evaluate Fever/Sepsis dyspnea COMPARISON STUDY: 03/28/2016 FINDINGS: The bones soft tissues and hemidiaphragms are normal. The cardiomediastinal silhouette is normal. The lungs are clear. The pulmonary vasculature is normal. IMPRESSION: Negative chest. Electronically signed by: Aldo Brooks M.D. 04/14/2016 4:54 PM Dictated Date/Time: 04/14/2016 4:54 PM Laboratory Results 04/14/16 17:27 Red Blood Count 3.58, Mean Corpuscular Volume 98.0, Mean Corpuscular Hemoglobin 32.4, Mean Corpuscular Hemoglobin Concent 33.0, Mean Platelet Volume 10.2, Neutrophils (%) (Auto) 91.2, Lymphocytes (%) (Auto) 4.5, Monocytes (%) (Auto) 3.9, Eosinophils (%) (Auto) 0.0, Basophils (%) (Auto) 0.1, Neutrophils # (Auto) 17.26, Lymphocytes # (Auto) 0.86, Monocytes # (Auto) 0.73, Eosinophils # (Auto) 0.00, Basophils # (Auto) 0.01 04/14/16 17:27 Test 04/14/16 17:00 04/14/16 17:27 Influenza Type A Antigen Neg for Influ A (NEG) Influenza Type B Antigen Neg for Influ B (NEG) White Blood Count 18.92 K/uL (4.8-10.8) Red Blood Count 3.58 M/uL (4.7-6.1) Hemoglobin 11.6 g/dL (14.0-18.0) Hematocrit 35.1 % (42-52) Mean Corpuscular Volume 98.0 fL (80-100) Mean Corpuscular Hemoglobin 32.4 pg (25-34) Mean Corpuscular Hemoglobin Concent 33.0 g/dl (32-36) Platelet Count 193 K/uL (130-400) Mean Platelet Volume 10.2 fL (7.4-10.4) Neutrophils (%) (Auto) 91.2 % Lymphocytes (%) (Auto) 4.5 % Monocytes (%) (Auto) 3.9 % Eosinophils (%) (Auto) 0.0 % Basophils (%) (Auto) 0.1 % Neutrophils # (Auto) 17.26 K/uL (1.4-6.5) Lymphocytes # (Auto) 0.86 K/uL (1.2-3.4) Monocytes # (Auto) 0.73 K/uL (0.11-0.59) Eosinophils # (Auto) 0.00 K/uL (0-0.5) Basophils # (Auto) 0.01 K/uL (0-0.2) RDW Standard Deviation 53.1 fL (36.4-46.3) RDW Coefficient of Variation 14.7 % (11.5-14.5) Immature Granulocyte % (Auto) 0.3 % Immature Granulocyte # (Auto) 0.06 K/uL (0.00-0.02) Dohle Bodies 1+ Erythrocyte Sedimentation Rate 19 mm/hr (0-14) Prothrombin Time 24.8 SECONDS (9.0-12.0) Prothromb Time International Ratio 2.2 (0.9-1.1) Activated Partial Thromboplast Time 38.6 SECONDS (21.0-31.0) Partial Thromboplastin Ratio 1.5 Anion Gap 8.0 mmol/L (3-11) Est Creatinine Clear Calc Drug Dose 29.6 ml/min Estimated GFR () 31.0 Estimated GFR (Non- 26.7 BUN/Creatinine Ratio 17.0 (10-20) Calcium Level 8.1 mg/dl (8.5-10.1) Total Bilirubin 0.4 mg/dl (0.2-1) Direct Bilirubin 0.1 mg/dl (0-0.2) Aspartate Amino Transf (AST/SGOT) 42 U/L (15-37) Alanine Aminotransferase (ALT/SGPT) 28 U/L (12-78) Alkaline Phosphatase 79 U/L (45-117) Total Creatine Kinase 868 U/L (39-308) Creatine Kinase MB 2.2 ng/ml (0.5-3.6) Creatine Kinase MB Ratio 0.3 (0-3.0) Troponin I < 0.015 ng/ml (0-0.045) Total Protein 6.2 gm/dl (6.4-8.2) Albumin 3.3 gm/dl (3.4-5.0) Laboratory results as stated above per my review. Medications Administered Medications (Trade) Dose Ordered Sig/Ursula Route Start Time Stop Time Status Last Admin Dose Admin Sodium Chloride (Nss 1000ml) 1,000 ml @ 999 mls/hr Q1H1M STAT IV 04/14/16 16:38 04/14/16 17:38 DC 04/14/16 16:54 999 MLS/HR Ceftriaxone Sodium (Rocephin Inj) 1 gm NOW STAT IV 04/14/16 16:38 04/14/16 16:40 DC 04/14/16 17:38 1 GM ECG Indication: other (fever) Rate (beats per minute): 73 Rhythm: normal sinus Findings: no acute ischemic change, no ectopy ED Course 1634: Previous medical records were reviewed. The patient was evaluated in room B7. A complete history and physical examination was performed. 163: Zosyn Iv 4.5 gm IV, Rocephin Inj 1 gm IV, Sodium Chloride 1,000 ml @ 999 mls/hr IV. 1801: Sodium Chloride 1,000 ml @ 999 mls/hr IV. 1807: Discussed the patient's case with Dr. Tank DODD. The patient will be evaluated for further treatment and disposition. 1811: I discussed the patient's results and treatment plan with the patient and his family. Medical Decision The patient is a 85 year old male who presents to the ED with complaints of fever. The patient is from [facility]. The patient was confused yesterday and had a temperature of 102. He had an outpatient chest x-ray yesterday that was reportedly negative. The patient did do some IM Rocephin at the nursing facility. He is noted to have a left lower extremity redness today. It is circumferential and there is a scab in the left medial malleolus area likely from her recent wound. The patient has some edema to the left lower extremities well. His exam was otherwise unremarkable. He is a little confused at this time. This is somewhat improved since earlier today and yesterday according to the family. Chest x-ray did not show acute disease. Influenza swab was negative. WBC was 18.9. INR is 2.2. The BUN is 38 and creatinine is 2.2. This is up from 24 and 1.3. EKG shows a normal sinus rhythm. Sedimentation rate was 19. The patient was told results the test. He was treated with IV fluids, IV Rocephin and IV Zosyn. He was given a total of 2 L of fluid. The patient was seen by the hospitalist service for further inpatient evaluation and care. Differential includes viral illness, influenza, streptococcal pharyngitis, meningitis, pneumonia, sinusitis, UTI, pyelonephritis, otitis media. Consults Time Called: 1805 Consulting Physician: Dr. Tank DODD Returned Call: [id number] Discussed the patient's case. The patient will be evaluated for further treatment and disposition. Impression Primary Impression: Cellulitis, leg Additional Impressions: Confusion ARF (acute renal failure) Scribe Attestation The scribe's documentation has been prepared under my direction and personally reviewed by me in its entirety. I confirm that the note above accurately reflects all work, treatment, procedures, and medical decision making performed by me. Departure Information Dispostion Being Evaluated By Hospitalist Referrals Rafa Gonzalez M.D. (PCP) Problem Qualifiers
[2016-04-14] MEDS ORDERED: ONDANSETRON INJ 2 MG/ML 2 ML VIAL IV PRN (18:30)
[2016-04-14 19:15] VITALS: BP 109/62; PULSE 73; TEMP 37.1; O2SAT 96; Ht 177.8 cm; Wt 103.8 kg
--- NOTE | 2016-04-14 19:42 | History and Physical ---
History & Physical Date & Time of Service: Apr 14, 2016 at 19:14 Chief Complaint: Fever, Confusion Primary Care Physician: Rafa Gonzalez M.D. History of Present Illness Source: patient, family, hospital records 85 yo male with significant history of ischemic and hemorrhagic strokes, CAD with stenting, left leg DVT, atrial flutter and more recently he suffered fractures of lumbar transverse processes and was at [facility] for rehabilitation. Over the past three days he has developed left lower extremity redness, tenderness. Then yesterday he started having fevers and chills, poor appetite, fatigue and malaise. He did not suffer any trauma to the left leg. He does have some dry, scabbed areas that could have led to a break in the skin surface. He has never had cellulitis before. The left leg has been chronically swollen ever since he had a DVT on the left side. The swelling is not increased currently. He reports that his rehabilitation had been going well , in fact he was scheduled to be evaluated for discharge tomorrow. In addition to the above symptoms, he has been eating and drinking less the past three days and says that he has not had any urine output all day. This is unusual for him and even currently he does not feel like he has to urinate. He did move his bowels today, loose after receiving milk of magnesia. Past Medical/Surgical History Ischemic CVA due to carotid atherosclerosis s/p right carotid endarterectomy hemorrhagic stroke left leg DVT atrial flutter CAD with h/o stenting HTN hyperlipidemia Family History family history: HTN, high cholesterol, no family history of stroke or heart attack Social History Smoking Status: Never Smoker Drug Use: none Marital Status: Housing status: lives with family Occupational Status: retired Immunizations History of Influenza Vaccine: Yes Influenza Vaccine Date: Nov 29, 2010 History of Tetanus Vaccine?: utd History of Pneumococcal: Unknown Pneumococcal Date: Dec 02, 2009 History of Hepatitis B Vaccine: Unknown Multi-Drug Resistant Organisms History of MDRO: No Allergies Coded Allergies: No Known Allergies (Verified , NONE, 03/02/14) Home Medications Scheduled Amiodarone Hcl (Cordarone), 200 MG PO DAILY Amlodipine Besylate (Norvasc), 5 MG PO HS Ceftriaxone Sod (Rocephin), 1 GM IM QPM Cholecalciferol (D3-50), 1 CAP PO WK Clopidogrel (Plavix), 75 MG PO DAILY Finasteride (Proscar), 5 MG PO DAILY Hydrochlorothiazide (Hydrochlorothiazide), 12.5 MG PO DAILY Levothyroxine Sodium (Synthroid), 1 TAB PO DAILY Lisinopril (Zestril), 20 MG PO AMPM Senna/Docusate Sod (Senokot S), 1 TAB PO QAM Simvastatin (Zocor), 20 MG PO QPM Tamsulosin Hcl (Flomax), 0.4 MG PO HS Warfarin Sodium (Coumadin), 1 TAB PO DAILY Zolpidem Tartrate (Ambien), 5 MG PO HS Scheduled PRN Acetaminophen Tab (Tylenol), 650 MG PO Q6 PRN for Pain Ipratropium-Albuterol (Duoneb), 1 TREATMENT INH Q6 PRN for SOB/Wheezing Polyethylene Glycol 3350 (Glycolax), 17 GM PO UD PRN for Constipation Tramadol Hcl (Ultram), 1 TAB PO TID PRN for Pain Review of Systems Constitutional: + chills, + fatigue, + fever, + sweats, + weakness, No weight loss Eyes: No diplopia, No discharge, No eye pain, No problem reported, No redness, No worsening of vision ENT: No dental problems, No hearing loss, No nasal symptoms, No problem reported, No sore throat, No tinnitus, No trouble swallowing, No unusual epistaxis Respiratory: No cough, No dyspnea at rest, No dyspnea on exertion, No hemoptysis, No problem reported, No shortness of breath, No sputum, No wheezing Cardiovascular: No PND, No chest pain, No claudication, No edema, No orthopnea , No palpitations, No problem reported Abdomen: + diarrhea, + problem reported (poor appetite), No GI bleeding, No constipation, No nausea, No pain, No vomiting Musculoskeletal: + joint pain (back, improving), + swelling (left leg, chronic) , No calf pain, No muscle pain, No problem reported Genitourinary - Male: + urinary retention (no UO today), No dysuria, No hematuria, No urinary frequency, No urinary urgency Neurologic: + weakness, No balance problems, No memory loss, No numbness/ tingling, No paralysis, No problem reported, No vertigo Psychiatric: No anhedonism, No anxiety, No depression symptoms, No insomnia, No problem reported, No substance abuse Endocrine: No excessive thirst, No excessive urination, No fatigue, No problem reported Hematologic / Lymphatic: No abnormal bleeding/bruising, No clotting problems, No night sweats, No problem reported, No swollen lymph nodes Integumentary: No bleeding, No color change, No itch, No new/changing skin lesions, No problem reported, No rash Allergic / Immunologic: No environmental allergies, No food allergies, No frequent infections, No hives, No pet sensitivities, No poor healing, No problem reported, No prolonged convalescence, No seasonal allergies Physical Exam Vital Signs Date Time Temp Pulse Resp B/P Pulse Ox O2 Delivery O2 Flow Rate FiO2 04/14/16 18:59 70 20 101/48 97 04/14/16 18:03 71 16 89/48 97 Room Air 04/14/16 17:42 36.8 70 16 90/50 97 Room Air 04/14/16 16:18 76 04/14/16 16:09 97 Room Air 04/14/16 16:05 36.7 79 16 114/54 97 Room Air General Appearance: WD/WN, no apparent distress Head: normocephalic, atraumatic Eyes: normal inspection, EOMI, sclerae normal ENT: normal ENT inspection, hearing grossly normal, pharynx normal Neck: supple, no adenopathy, no JVD, trachea midline Respiratory/Chest: chest non-tender, lungs clear, normal breath sounds, no respiratory distress, no accessory muscle use Cardiovascular: regular rate, rhythm, no edema, no gallop, no JVD, no murmur, normal peripheral pulses Abdomen/GI: normal bowel sounds, non tender, soft, no organomegaly Back: normal inspection, no CVA tenderness, no muscle spasm, normal range of motion Extremities/Musculoskelatal: no calf tenderness, normal capillary refill, normal range of motion, pelvis stable, + swelling (left leg, chronic) Neurologic/Psych: credit analyst II-XII nml as tested, no motor/sensory deficits, alert, normal mood/affect, normal reflexes, oriented x 3 Skin: + rash (left leg erythema, warm to touch, mildly tender) Lymphatic: no adenopathy Diagnostics Laboratory Results Results Past 24 Hours Test 04/14/16 17:00 04/14/16 17:27 Range/Units Influenza Type A Antigen Neg for Influ A NEG Influenza Type B Antigen Neg for Influ B NEG White Blood Count 18.92 4.8-10.8 K/uL Red Blood Count 3.58 4.7-6.1 M/uL Hemoglobin 11.6 14.0-18.0 g/dL Hematocrit 35.1 42-52 % Mean Corpuscular Volume 98.0 80-100 fL Mean Corpuscular Hemoglobin 32.4 25-34 pg Mean Corpuscular Hemoglobin Concent 33.0 32-36 g/dl Platelet Count 193 130-400 K/uL Mean Platelet Volume 10.2 7.4-10.4 fL Neutrophils (%) (Auto) 91.2 % Lymphocytes (%) (Auto) 4.5 % Monocytes (%) (Auto) 3.9 % Eosinophils (%) (Auto) 0.0 % Basophils (%) (Auto) 0.1 % Neutrophils # (Auto) 17.26 1.4-6.5 K/uL Lymphocytes # (Auto) 0.86 1.2-3.4 K/uL Monocytes # (Auto) 0.73 0.11-0.59 K/uL Eosinophils # (Auto) 0.00 0-0.5 K/uL Basophils # (Auto) 0.01 0-0.2 K/uL RDW Standard Deviation 53.1 36.4-46.3 fL RDW Coefficient of Variation 14.7 11.5-14.5 % Immature Granulocyte % (Auto) 0.3 % Immature Granulocyte # (Auto) 0.06 0.00-0.02 K/uL Dohle Bodies 1+ Erythrocyte Sedimentation Rate 19 0-14 mm/hr Prothrombin Time 24.8 9.0-12.0 SECONDS Prothromb Time International Ratio 2.2 0.9-1.1 Activated Partial Thromboplast Time 38.6 21.0-31.0 SECONDS Partial Thromboplastin Ratio 1.5 Sodium Level 140 136-145 mmol/L Potassium Level 4.3 3.5-5.1 mmol/L Chloride Level 105 98-107 mmol/L Carbon Dioxide Level 27 21-32 mmol/L Anion Gap 8.0 3-11 mmol/L Blood Urea Nitrogen 38 7-18 mg/dl Creatinine 2.20 0.60-1.40 mg/dl Est Creatinine Clear Calc Drug Dose 29.6 ml/min Estimated GFR () 31.0 Estimated GFR (Non- 26.7 BUN/Creatinine Ratio 17.0 10-20 Random Glucose 148 70-99 mg/dl Calcium Level 8.1 8.5-10.1 mg/dl Total Bilirubin 0.4 0.2-1 mg/dl Direct Bilirubin 0.1 0-0.2 mg/dl Aspartate Amino Transf (AST/SGOT) 42 15-37 U/L Alanine Aminotransferase (ALT/SGPT) 28 12-78 U/L Alkaline Phosphatase 79 45-117 U/L Total Creatine Kinase 868 39-308 U/L Creatine Kinase MB 2.2 0.5-3.6 ng/ml Creatine Kinase MB Ratio 0.3 0-3.0 Troponin I < 0.015 0-0.045 ng/ml Total Protein 6.2 6.4-8.2 gm/dl Albumin 3.3 3.4-5.0 gm/dl Microbiology Results 04/14/16 Blood Culture, Received Pending 04/14/16 Blood Culture, Received Pending CXR normal EKG normal sinus, incomplete LBBB Impression Assessment and Plan 85 yo male with recent history of transverse process fractures and was at rehab at [facility], developed left lower extremity redness, warmth and pain - Left leg cellulitis with severe sepsis: febrile, leukocytosis, has hypotension and acute renal failure admit to telemetry IV fluids, Daptomycin IV, follow up on blood cultures, repeat lactic acid hold BP medications as well as Flomax due to hypotension - Acute renal failure: likely combination of infection, poor oral intake while on AMARILIS inhibitor IV fluids, check renal US to r/o obstructive picture, hold AMARILIS inhibitor and HCTZ - Elevated CK: likely due to cellulitis, perhaps some myositis in left leg, no chest pain and troponin normal will repeat in the AM after IV fluids - h/o atrial flutter: NSR currently, continue Amiodarone and Coumadin - h/o stroke and CAD with stent: continue Plavix - h/o DVT, left sided: continue Coumadin, INR therapeutic - recent transverse process fractures: continue PT/OT to evaluate if he can go home once medically stable, back brace - hyperlipidemia: hold statin due to elevated CK - Hypothyroidism: Synthroid Level of Care Telemetry Resuscitation Status FULL RESUSCITATION VTE Prophylaxis VTE Risk Assessment Done? Y/N: Yes Risk Level: High Given or contraindicated: Warfarin (Coumadin) Additional Copies To Rafa Gonzalez M.D.
[2016-04-14] MEDS: SODIUM CHLORIDE 0.45% 1000ML 1,000 ML IV SCH (19:48)
[2016-04-14] MEDS ORDERED: SIMVASTATIN 20 MG TAB PO SCH (21:00)
[2016-04-14] MEDS: ACETAMINOPHEN 325 MG TAB PO PRN (21:24)
[2016-04-14] MEDS: ZOLPIDEM TARTRATE 5 MG TAB PO SCH (21:24)
[2016-04-14 21:33] LABS: URINE APPEARANCE CLEAR (CLEAR); URINE BILIRUBIN NEG (NEG); URINE COLOR YELLOW; URINE NITRITE NEG (NEG); URINE SPECIFIC GRAVITY 1.021 (1.000-1.030); UROBILINOGEN NEG (NEG); ZZUR CULT IF INDIC CLEAN CATCH NO
[2016-04-14 21:35] VITALS: TEMP 39
[2016-04-14 21:45] LABS: MANUAL MICROSCOPIC REQUIRED? NO; REVIEW REQ? NO
[2016-04-14 22:26] VITALS: TEMP 36.2
[2016-04-14 23:59] VITALS: O2SAT 96
[2016-04-15 00:14] VITALS: BP 92/54; PULSE 61; TEMP 37.4; O2SAT 94
[2016-04-15 04:00] VITALS: BP 93/52; PULSE 63; TEMP 36.8; O2SAT 95
[2016-04-15] MEDS: SODIUM CHLORIDE 0.45% 1000ML 1,000 ML IV SCH ×2 (04:14→17:10)
[2016-04-15] MEDS: LEVOTHYROXINE 25 MCG TAB PO SCH (05:46)
[2016-04-15] MEDS: ACETAMINOPHEN 325 MG TAB PO PRN (05:49)
[2016-04-15 06:25] LABS: BASO % 0.1 %; BASO ABS # 0.02 K/uL (0-0.2); COMPLETE YES; EOS % 0.4 %; HEMATOCRIT 34.1 % (42-52); IG% 0.2 %; LYMPH % 10.1 %; MEAN CELL VOLUME 98.3 fL (80-100); MEAN CORPUSCULAR HEMOGLOBIN 32.3 pg (25-34); MEAN CORPUSCULAR HGB CONC 32.8 g/dl (32-36); MEAN PLATELET VOLUME 10.4 fL (7.4-10.4); NEUT % 83.2 %; PLATELET COUNT 180 K/uL (130-400); RED BLOOD COUNT 3.47 M/uL (4.7-6.1); WHITE BLOOD COUNT 13.89 K/uL (4.8-10.8)
[2016-04-15 06:28] LABS: INR 1.8 (0.9-1.1); PROTHROMBIN TIME (PATIENT) 19.8 SECONDS (9.0-12.0)
[2016-04-15 07:05] LABS: BUN/CREATININE RATIO 18.4 (10-20); CALCIUM 8.6 mg/dl (8.5-10.1); MAGNESIUM 2.7 mg/dl (1.8-2.4); POTASSIUM 4.6 mmol/L (3.5-5.1)
[2016-04-15 07:24] VITALS: BP 92/52; PULSE 62; TEMP 37; O2SAT 95
[2016-04-15] MEDS: FINASTERIDE 5 MG TAB PO SCH (08:31)
[2016-04-15] MEDS: CLOPIDOGREL BISULFATE 75 MG TAB PO SCH (08:31)
[2016-04-15] MEDS: AMIODARONE 200 MG TAB PO SCH (08:32)
[2016-04-15] MEDS: DOCUSATE SODIUM/SENNA 50/8.6MG TAB PO SCH (08:32)
--- NOTE | 2016-04-15 09:15 | Hospitalist Progress Note ---
Hospitalist Progress Note Date of Service Apr 15, 2016. Subjective Pt evaluation today including: conversation w/ patient, physical exam, chart review, lab review, review of studies, review of inpatient medication list Voiding: no voiding problems, no incontinence Patient states he is feeling well. He was doing well at [facility], until two days ago when he started to develop swelling and redness of the left extremity. He also was experiencing fever and chills. Currently, he is feeling well. He denies any pain. He is eating and drinking OK. Patient denies any fever , chills, sweats, lightheadedness, dizziness, vision changes, CP, palpitations, edema, SOB, wheezing, cough, abdominal pain, nausea, vomiting, diarrhea, urinary symptoms, melena, numbness/tingling, weakness, muscle/joint pain, anxiety/depression, active bleeding. Medications Current Inpatient Medications Medications (Trade) Dose Ordered Sig/Ursula Route Start Time Stop Time Status Last Admin Dose Admin Sodium Chloride (1/2 Nss 1000ml) 1,000 ml @ 100 mls/hr Q10H IV 04/14/16 18:20 05/14/16 18:19 04/15/16 04:14 100 MLS/HR Acetaminophen (Tylenol Tab) 650 mg Q4H PRN PO 04/14/16 18:30 05/14/16 18:29 04/15/16 05:49 650 MG Ondansetron HCl 4 mg 4 mg Q6H PRN IV 04/14/16 18:30 05/14/16 18:29 Daptomycin/Sodium Chloride (Cubicin IV/Nss 50ml) 58 ml @ 100 mls/hr Q24H IV 04/15/16 18:00 04/25/16 17:59 Amiodarone HCl (Cordarone Tab) 200 mg DAILY PO 04/15/16 09:00 05/15/16 08:59 04/15/16 08:32 200 MG Clopidogrel Bisulfate (plAVix TAB) 75 mg DAILY PO 04/15/16 09:00 05/15/16 08:59 04/15/16 08:31 75 MG Finasteride (Proscar Tab) 5 mg DAILY PO 04/15/16 09:00 05/15/16 08:59 04/15/16 08:31 5 MG Levothyroxine Sodium (Synthroid Tab) 25 mcg DAILYBB PO 04/15/16 06:00 05/15/16 05:59 04/15/16 05:46 25 MCG Senna/Docusate Sodium (Senokot S Tab) 1 tab QAM PO 04/15/16 09:00 05/15/16 08:59 Simvastatin (Zocor Tab) 20 mg QPM PO 04/14/16 21:00 05/14/16 20:59 Future hold Warfarin Sodium (Coumadin Tab) 2 mg DAILY@1600 PO 04/15/16 16:00 05/15/16 15:59 Zolpidem Tartrate (Ambien Tab) 5 mg HSZ PO 04/14/16 22:00 05/14/16 21:59 04/14/16 21:24 5 MG Objective Vital Signs Date Time Temp Pulse Resp B/P Pulse Ox O2 Delivery O2 Flow Rate FiO2 04/15/16 07:24 37.0 62 16 92/52 95 Room Air 04/15/16 04:00 Room Air 04/15/16 04:00 36.8 63 18 93/52 95 Room Air 04/15/16 00:14 37.4 61 18 92/54 94 Room Air 04/14/16 23:59 96 Room Air 04/14/16 22:26 36.2 04/14/16 21:35 39.0 04/14/16 20:00 Room Air 04/14/16 19:15 37.1 73 18 109/62 96 Room Air 04/14/16 18:59 70 20 101/48 97 04/14/16 18:03 71 16 89/48 97 Room Air 04/14/16 17:42 36.8 70 16 90/50 97 Room Air 04/14/16 16:18 76 04/14/16 16:09 97 Room Air 04/14/16 16:05 36.7 79 16 114/54 97 Room Air Physical Exam General Appearance: no apparent distress, + pertinent finding (supporting back brace on ) Eyes: normal inspection, PERRL ENT: hearing grossly normal Neck: supple Respiratory/Chest: lungs clear, normal breath sounds, no respiratory distress, no accessory muscle use Cardiovascular: regular rate, rhythm Abdomen: normal bowel sounds, non tender, soft Extremities: no calf tenderness, + swelling (+1 pitting edema of left lower extremity from ankle to knee- firm ), + pertinent finding (mild erythma of medial left ankle to mid calf region. lesion noted on medial ankle, crusted scabbing, no drainage) Neurologic/Psychiatric: alert, normal mood/affect, oriented x 3 Skin: normal color, warm/dry, no rash Laboratory Results Last 24 Hours Test 04/14/16 17:00 04/14/16 17:27 04/14/16 19:58 04/14/16 21:25 Influenza Type A Antigen Neg for Influ A Influenza Type B Antigen Neg for Influ B White Blood Count 18.92 K/uL Red Blood Count 3.58 M/uL Hemoglobin 11.6 g/dL Hematocrit 35.1 % Mean Corpuscular Volume 98.0 fL Mean Corpuscular Hemoglobin 32.4 pg Mean Corpuscular Hemoglobin Concent 33.0 g/dl Platelet Count 193 K/uL Mean Platelet Volume 10.2 fL Neutrophils (%) (Auto) 91.2 % Lymphocytes (%) (Auto) 4.5 % Monocytes (%) (Auto) 3.9 % Eosinophils (%) (Auto) 0.0 % Basophils (%) (Auto) 0.1 % Neutrophils # (Auto) 17.26 K/uL Lymphocytes # (Auto) 0.86 K/uL Monocytes # (Auto) 0.73 K/uL Eosinophils # (Auto) 0.00 K/uL Basophils # (Auto) 0.01 K/uL RDW Standard Deviation 53.1 fL RDW Coefficient of Variation 14.7 % Immature Granulocyte % (Auto) 0.3 % Immature Granulocyte # (Auto) 0.06 K/uL Dohle Bodies 1+ Erythrocyte Sedimentation Rate 19 mm/hr Prothrombin Time 24.8 SECONDS Prothromb Time International Ratio 2.2 Activated Partial Thromboplast Time 38.6 SECONDS Partial Thromboplastin Ratio 1.5 Sodium Level 140 mmol/L Potassium Level 4.3 mmol/L Chloride Level 105 mmol/L Carbon Dioxide Level 27 mmol/L Anion Gap 8.0 mmol/L Blood Urea Nitrogen 38 mg/dl Creatinine 2.20 mg/dl Est Creatinine Clear Calc Drug Dose 29.6 ml/min Estimated GFR () 31.0 Estimated GFR (Non- 26.7 BUN/Creatinine Ratio 17.0 Random Glucose 148 mg/dl Calcium Level 8.1 mg/dl Total Bilirubin 0.4 mg/dl Direct Bilirubin 0.1 mg/dl Aspartate Amino Transf (AST/SGOT) 42 U/L Alanine Aminotransferase (ALT/SGPT) 28 U/L Alkaline Phosphatase 79 U/L Total Creatine Kinase 868 U/L Creatine Kinase MB 2.2 ng/ml Creatine Kinase MB Ratio 0.3 Troponin I < 0.015 ng/ml Total Protein 6.2 gm/dl Albumin 3.3 gm/dl Lactic Acid Level 1.8 mmol/L Urine Color YELLOW Urine Appearance CLEAR Urine pH 6.0 Urine Specific [place] 1.021 Urine Protein 1+ Urine Glucose (UA) NEG Urine Ketones NEG Urine Occult Blood 2+ Urine Nitrite NEG Urine Bilirubin NEG Urine Urobilinogen NEG Urine Leukocyte Esterase NEG Urine WBC (Auto) 1-5 /hpf Urine RBC (Auto) 0-4 /hpf Urine Hyaline Casts (Auto) 1-5 /lpf Urine Epithelial Cells (Auto) 10-20 /lpf Urine Bacteria (Auto) NEG Test 04/15/16 05:58 04/15/16 08:30 White Blood Count 13.89 K/uL Red Blood Count 3.47 M/uL Hemoglobin 11.2 g/dL Hematocrit 34.1 % Mean Corpuscular Volume 98.3 fL Mean Corpuscular Hemoglobin 32.3 pg Mean Corpuscular Hemoglobin Concent 32.8 g/dl Platelet Count 180 K/uL Mean Platelet Volume 10.4 fL Neutrophils (%) (Auto) 83.2 % Lymphocytes (%) (Auto) 10.1 % Monocytes (%) (Auto) 6.0 % Eosinophils (%) (Auto) 0.4 % Basophils (%) (Auto) 0.1 % Neutrophils # (Auto) 11.56 K/uL Lymphocytes # (Auto) 1.40 K/uL Monocytes # (Auto) 0.83 K/uL Eosinophils # (Auto) 0.05 K/uL Basophils # (Auto) 0.02 K/uL RDW Standard Deviation 53.2 fL RDW Coefficient of Variation 14.7 % Immature Granulocyte % (Auto) 0.2 % Immature Granulocyte # (Auto) 0.03 K/uL Prothrombin Time 19.8 SECONDS Prothromb Time International Ratio 1.8 Sodium Level 143 mmol/L Potassium Level 4.6 mmol/L Chloride Level 108 mmol/L Carbon Dioxide Level 27 mmol/L Anion Gap 8.0 mmol/L Blood Urea Nitrogen 37 mg/dl Creatinine 2.00 mg/dl Est Creatinine Clear Calc Drug Dose 33.8 ml/min Estimated GFR () 34.7 Estimated GFR (Non- 30.0 BUN/Creatinine Ratio 18.4 Random Glucose 95 mg/dl Calcium Level 8.6 mg/dl Magnesium Level 2.7 mg/dl Total Creatine Kinase 1233 U/L Assessment and Plan 85 yo male with recent history of transverse process fractures and was at rehab at [facility], developed left lower extremity redness, warmth and pain Left leg cellulitis with severe sepsis: febrile, leukocytosis, has hypotension and acute renal failure: - Admit to telemetry - IV fluids, Daptomycin IV (started on 04/14), follow up on blood cultures, repeated lactic acid - Hold BP medications as well as Flomax due to hypotension - Influenza negative - U/A unremarkable - CXR no acute findings - Follow CBC - Left lower extremity u/s- No DVT within the left lower extremity Acute renal failure: likely combination of infection, poor oral intake while on AMARILIS inhibitor: - IV fluids - Check renal US to r/o obstructive picture- No evidence for hydronephrosis. Several small stable subcentimeter cortical cysts. - Hold AMARILIS inhibitor and HCTZ - Follow PRP Elevated CK: likely due to cellulitis, perhaps some myositis in left leg, no chest pain and troponin normal: - Trending upwards. Repeat tomorrow AM - IVF h/o atrial flutter: - Continue Amiodarone and Coumadin - Follow INR h/o stroke and CAD with stent: - Continue Plavix h/o DVT, left sided: - Continue Coumadin, follow INR Recent transverse process fractures: - Continue PT/OT to evaluate if he can go home once medically stable, back brace Hyperlipidemia: - Hold statin due to elevated CK Hypothyroidism: - Continue Synthroid Code Status: - LEVEL I, FULL Dispo: - PT recommends patient returns to [facility] to complete rehab. Consult social media campaign manager.
--- NOTE | 2016-04-15 09:56 | Clinical Documentation Query ---
KLEBER Lewis : CLINICAL DOCUMENTATION QUERY Patient is an 85 year old male presenting with fever, confusion, chills, and shortness of breath, subsequently admitted with left severe sepsis due to left leg cellulitis and acute renal failure. He has been treated with IVF and IV antibiotics and monitored on telemetry with serial labs, cultures, and supportive care. In your clinical opinion is this patient being managed for: (x ) Septic/Metabolic encephalopathy ( ) Other explanation of clinical findings (Please Explain) ( ) Unable to determine (Please Define) ( ) Need to Discuss ( ) Not Agree The medical record reflects the following clinical findings, treatment, and risk factors. Clinical Indicators: Altered mental status in the setting of infection and acute renal failure. Treatment: IVF, IV antibiotics. Risk Factors: Cellulitis, poor oral intake, acute renal failure Please clarify and document your clinical opinion in the progress notes and discharge summary. Terms such as "probable", "suspected", "likely", "questionable", "possible", or "still to be ruled out" are acceptable. IF IN AGREEMENT, YOU MUST DOCUMENT ABOVE DIAGNOSTIC STATEMENT IN DAILY PROGRESS NOTES AND DISCHARGE SUMMARY. This document is not part of the patient's record. Thank You, Orlando Ellis, MIYA [phone]
--- NOTE | 2016-04-15 09:58 | Clinical Documentation Query ---
ELÍAS GARAY : CLINICAL DOCUMENTATION QUERY Patient is an 85 year old male presenting with fever, confusion, chills, and shortness of breath, subsequently admitted with left severe sepsis due to left leg cellulitis and acute renal failure. He has been treated with IVF and IV antibiotics and monitored on telemetry with serial labs, cultures, and supportive care. In your clinical opinion is this patient being managed for: ( X ) possible Septic/Metabolic encephalopathy, POA, resolved ( ) Other explanation of clinical findings (Please Explain) ( ) Unable to determine (Please Define) ( ) Need to Discuss ( ) Not Agree The medical record reflects the following clinical findings, treatment, and risk factors. Clinical Indicators: Altered mental status in the setting of infection and acute renal failure. Treatment: IVF, IV antibiotics. Risk Factors: Cellulitis, poor oral intake, acute renal failure Please clarify and document your clinical opinion in the progress notes and discharge summary. Terms such as "probable", "suspected", "likely", "questionable", "possible", or "still to be ruled out" are acceptable. IF IN AGREEMENT, YOU MUST DOCUMENT ABOVE DIAGNOSTIC STATEMENT IN DAILY PROGRESS NOTES AND DISCHARGE SUMMARY. This document is not part of the patient's record. Thank You, Orlando Ellis, RN [phone]
--- NOTE | 2016-04-15 11:06 | DIAGNOSTIC IMAGING REPORT ---
LEFT LOWER EXTREMITY VENOUS DOPPLER HISTORY: swollen red leg COMPARISON STUDY: None. FINDINGS: There is normal compressibility, flow, and augmentation within the left lower extremity deep venous system. A 1.7 x 2.6 x 0.6 cm popliteal cyst. IMPRESSION: No DVT within the left lower extremity. Electronically signed by: Mike Nieto M.D. 04/15/2016 11:05 AM Dictated Date/Time: 04/15/2016 11:04 AM
--- NOTE | 2016-04-15 11:14 | DIAGNOSTIC IMAGING REPORT ---
RENAL ULTRASOUND HISTORY: Renal failure acute renal failure, minimal urine output COMPARISON: 03/29/2016 FINDINGS: Right kidney: Maximum dimension 10.7 cm. Several small stable cortical cysts. No evidence for hydronephrosis. Left kidney: Maximum dimension 10.2 cm. Several very small cortical cysts. No evidence for hydronephrosis. Bladder: No bladder wall thickening. The bilateral ureteral jets were identified. IMPRESSION: No evidence for hydronephrosis. Several small stable subcentimeter cortical cysts. Electronically signed by: Aldo Brooks M.D. 04/15/2016 11:13 AM Dictated Date/Time: 04/15/2016 11:09 AM
[2016-04-15 11:34] VITALS: BP 105/62; PULSE 62; TEMP 36.7; O2SAT 96
[2016-04-15 15:45] VITALS: BP 104/67; PULSE 63; TEMP 36.9; O2SAT 97
[2016-04-15] MEDS: WARFARIN SOD 2 MG TAB PO SCH (17:09)
[2016-04-15 17:54] VITALS: BP 120/62; PULSE 71; TEMP 37.2; O2SAT 94
[2016-04-15] MEDS: DAPTOmycin IV 400 MG in SODIUM CHLORIDE 0.9% 50ML 50 ML IV SCH (19:07)
[2016-04-15] MEDS: ZOLPIDEM TARTRATE 5 MG TAB PO SCH (21:48)
[2016-04-16 00:04] VITALS: BP 130/70; PULSE 68; TEMP 36.9; O2SAT 92
[2016-04-16] MEDS: SODIUM CHLORIDE 0.45% 1000ML 1,000 ML IV SCH ×3 (00:24→22:11)
[2016-04-16] MEDS: LEVOTHYROXINE 25 MCG TAB PO SCH (05:42)
[2016-04-16 07:14] LABS: MEAN CELL VOLUME 96.3 fL (80-100); MEAN CORPUSCULAR HGB CONC 33.2 g/dl (32-36); MEAN PLATELET VOLUME 10.4 fL (7.4-10.4); PLATELET COUNT 170 K/uL (130-400); RED BLOOD COUNT 3.22 M/uL (4.7-6.1); WHITE BLOOD COUNT 7.94 K/uL (4.8-10.8)
[2016-04-16 07:23] LABS: INR 1.3 (0.9-1.1)
--- NOTE | 2016-04-16 07:43 | Hospitalist Progress Note ---
Hospitalist Progress Note Date of Service Apr 16, 2016. Subjective Pt evaluation today including: conversation w/ patient, physical exam, chart review, lab review, review of inpatient medication list Voiding: incontinence Patient states he is feeling well. He believes his leg looks much improved since yesterday (04/15). He is eating and drinking OK. +incontinence of urine x3 overnight. Patient denies any fever, chills, sweats, lightheadedness, dizziness , vision changes, CP, palpitations, edema, SOB, wheezing, cough, abdominal pain , nausea, vomiting, diarrhea, constipation, melena, numbness/tingling, weakness , muscle/joint pain, anxiety/depression, active bleeding, or new skin discoloration/changes. Medications Current Inpatient Medications Medications (Trade) Dose Ordered Sig/Ursula Route Start Time Stop Time Status Last Admin Dose Admin Sodium Chloride (1/ Nss 1000ml) 1,000 ml @ 100 mls/hr Q10H IV 04/14/16 18:20 05/14/16 18:19 04/16/16 00:24 100 MLS/HR Acetaminophen (Tylenol Tab) 650 mg Q4H PRN PO 04/14/16 18:30 05/14/16 18:29 04/15/16 05:49 650 MG Ondansetron HCl 4 mg 4 mg Q6H PRN IV 04/14/16 18:30 05/14/16 18:29 Daptomycin/Sodium Chloride (Cubicin IV/Nss 50ml) 58 ml @ 100 mls/hr Q24H IV 04/15/16 18:00 04/25/16 17:59 04/15/16 19:07 100 MLS/HR Amiodarone HCl (Cordarone Tab) 200 mg DAILY PO 04/15/16 09:00 05/15/16 08:59 04/16/16 08:33 200 MG Clopidogrel Bisulfate (plAVix TAB) 75 mg DAILY PO 04/15/16 09:00 05/15/16 08:59 04/16/16 08:33 75 MG Finasteride (Proscar Tab) 5 mg DAILY PO 04/15/16 09:00 05/15/16 08:59 04/16/16 08:34 5 MG Levothyroxine Sodium (Synthroid Tab) 25 mcg DAILYBB PO 04/15/16 06:00 05/15/16 05:59 04/16/16 05:42 25 MCG Senna/Docusate Sodium (Senokot S Tab) 1 tab QAM PO 04/15/16 09:00 05/15/16 08:59 04/16/16 08:34 1 TAB Simvastatin (Zocor Tab) 20 mg QPM PO 04/14/16 21:00 05/14/16 20:59 Future hold Warfarin Sodium (Coumadin Tab) 2 mg DAILY@1600 PO 04/15/16 16:00 05/15/16 15:59 04/15/16 17:09 2 MG Zolpidem Tartrate (Ambien Tab) 5 mg HSZ PO 04/14/16 22:00 05/14/16 21:59 04/15/16 21:48 5 MG Warfarin Sodium (Coumadin Tab) 3 mg DAILY@16 ONCE PO 04/16/16 16:00 04/16/16 16:01 Objective Vital Signs Date Time Temp Pulse Resp B/P Pulse Ox O2 Delivery O2 Flow Rate FiO2 04/16/16 00:04 36.9 68 18 130/70 92 Room Air 04/16/16 00:00 Room Air 04/15/16 17:54 37.2 71 22 120/62 94 Room Air 04/15/16 16:52 Room Air 04/15/16 15:45 36.9 63 16 104/67 97 Room Air 04/15/16 12:20 Room Air 04/15/16 11:34 36.7 62 16 105/62 96 Room Air 04/15/16 08:00 Room Air Physical Exam General Appearance: no apparent distress, + pertinent finding (supporting back brace on ) Eyes: normal inspection, PERRL ENT: hearing grossly normal Neck: supple Respiratory/Chest: lungs clear, normal breath sounds, no respiratory distress, no accessory muscle use Cardiovascular: regular rate, rhythm Abdomen: normal bowel sounds, non tender, soft Extremities: no calf tenderness, + swelling (+2 pitting edema of left lower extremity from ankle to knee- less firm), + pertinent finding (mild erythma of medial left ankle to mid calf region. lesions noted on medial ankle, crusted scabbing, no drainage) Neurologic/Psychiatric: alert, normal mood/affect, oriented x 3 Skin: warm/dry, no rash Laboratory Results Last 24 Hours Test 04/15/16 09:48 04/16/16 07:00 Lactic Acid Level 2.0 mmol/L White Blood Count 7.94 K/uL Red Blood Count 3.22 M/uL Hemoglobin 10.3 g/dL Hematocrit 31.0 % Mean Corpuscular Volume 96.3 fL Mean Corpuscular Hemoglobin 32.0 pg Mean Corpuscular Hemoglobin Concent 33.2 g/dl RDW Standard Deviation 50.9 fL RDW Coefficient of Variation 14.3 % Platelet Count 170 K/uL Mean Platelet Volume 10.4 fL Prothrombin Time 14.0 SECONDS Prothromb Time International Ratio 1.3 Assessment and Plan 85 yo male with recent history of transverse process fractures and was at rehab at [facility], developed left lower extremity redness, warmth and pain Left leg cellulitis with severe sepsis/metabolic encephalopathy, POA, resolved: - Admit to telemetry -- Transferred to med/surg on 04/15 - IV fluids, Daptomycin IV (started on 04/15) x48 hrs + IV Zosyn x1 dose, follow up on blood cultures, repeated lactic acid - Hold BP medications as well as Flomax due to hypotension - Influenza negative - U/A unremarkable - CXR no acute findings - Follow CBC - Left lower extremity u/s- No DVT within the left lower extremity Acute renal failure: likely combination of infection, poor oral intake while on AMARILIS inhibitor, resolved: - Treated with IV fluids - Renal US to r/o obstructive picture- No evidence for hydronephrosis. Several small stable subcentimeter cortical cysts. - Hold AMARIILS inhibitor and HCTZ - Follow PRP Elevated CK: likely due to cellulitis, perhaps some myositis in left leg, no chest pain and troponin normal, resolving: - Repeated, trending downward with IVF - Treated with IVF Urinary incontinence: - ?secondary to IVF. U/A negative, no urine culture- of no use at this point due to broad spectrum IV antibiotic treatment - Bladder scan - Check PSA h/o atrial flutter: - Continue Amiodarone and Coumadin 2 mg PO daily - Follow INR. 1.3 on 04/16- will give additional 3 mg PO tonight, totaling 5 mg h/o stroke and CAD with stent: - Continue Plavix h/o DVT, left sided: - Continue Coumadin Recent transverse process fractures: - Continue PT/OT, back brace Hyperlipidemia: - Hold statin due to elevated CK. Resume at discharge Hypothyroidism: - Continue Synthroid Code Status: - LEVEL I, FULL Dispo: - PT recommends patient returns to [facility] to complete rehab. building services engineer following. - If continued improvement, convert to oral antibiotics on 04/17. Hopefully discharge to [facility] within the next few days.
[2016-04-16 08:00] VITALS: O2SAT 92
[2016-04-16 08:10] LABS: BUN/CREATININE RATIO 17.1 (10-20); CALCIUM 8.2 mg/dl (8.5-10.1); CREATININE 1.4 mg/dl (0.60-1.40); MAGNESIUM 2.6 mg/dl (1.8-2.4); POTASSIUM 4.4 mmol/L (3.5-5.1)
[2016-04-16] MEDS: CLOPIDOGREL BISULFATE 75 MG TAB PO SCH (08:33)
[2016-04-16] MEDS: AMIODARONE 200 MG TAB PO SCH (08:33)
[2016-04-16] MEDS: DOCUSATE SODIUM/SENNA 50/8.6MG TAB PO SCH (08:34)
[2016-04-16] MEDS: FINASTERIDE 5 MG TAB PO SCH (08:34)
[2016-04-16 08:55] VITALS: O2SAT 95
[2016-04-16 09:06] VITALS: BP 120/62; PULSE 65; TEMP 36.3; O2SAT 95
[2016-04-16 14:48] VITALS: BP 115/71; PULSE 68; TEMP 36.6; O2SAT 90
[2016-04-16] MEDS ORDERED: WARFARIN SOD 3 MG TAB PO ONE (16:00)
[2016-04-16 16:15] VITALS: O2SAT 90
[2016-04-16] MEDS: WARFARIN SOD 2 MG TAB PO SCH (16:32)
[2016-04-16] MEDS: DAPTOmycin IV 400 MG in SODIUM CHLORIDE 0.9% 50ML 50 ML IV SCH (17:40)
[2016-04-16] MEDS: ZOLPIDEM TARTRATE 5 MG TAB PO SCH (22:10)
[2016-04-17 00:18] VITALS: BP 136/67; PULSE 62; TEMP 36.8; O2SAT 97
[2016-04-17] MEDS: LEVOTHYROXINE 25 MCG TAB PO SCH (05:30)
[2016-04-17 07:00] VITALS: BP 151/81; PULSE 59; TEMP 36.4; O2SAT 99
[2016-04-17 08:00] VITALS: O2SAT 92
[2016-04-17] MEDS: AMIODARONE 200 MG TAB PO SCH (08:05)
[2016-04-17] MEDS: AMOXICILLIN/CLAVULANATE TAB 875 MG TAB PO SCH ×2 (08:06→16:31)
[2016-04-17] MEDS: FINASTERIDE 5 MG TAB PO SCH (08:06)
[2016-04-17] MEDS: CLOPIDOGREL BISULFATE 75 MG TAB PO SCH (08:06)
[2016-04-17] MEDS: DOCUSATE SODIUM/SENNA 50/8.6MG TAB PO SCH (08:06)
[2016-04-17 08:26] LABS: HEMATOCRIT 34.3 % (42-52); MEAN CELL VOLUME 96.9 fL (80-100); MEAN CORPUSCULAR HEMOGLOBIN 32.5 pg (25-34); MEAN CORPUSCULAR HGB CONC 33.5 g/dl (32-36); MEAN PLATELET VOLUME 10.5 fL (7.4-10.4); PLATELET COUNT 190 K/uL (130-400); RED BLOOD COUNT 3.54 M/uL (4.7-6.1); WHITE BLOOD COUNT 5.67 K/uL (4.8-10.8)
[2016-04-17 08:32] LABS: INR 1.5 (0.9-1.1); PROTHROMBIN TIME (PATIENT) 16.1 SECONDS (9.0-12.0)
--- NOTE | 2016-04-17 08:37 | Hospitalist Progress Note ---
Hospitalist Progress Note Date of Service Apr 17, 2016. Subjective Pt evaluation today including: conversation w/ patient, physical exam, chart review, lab review, review of inpatient medication list Voiding: incontinence Patient states he is feeling well today. Feels left lower extremity is continuing to improve. +urinary incontinence- states he just can't make it to the bathroom in time. He is eating and drinking OK. Patient denies any fever, chills, sweats, lightheadedness, dizziness, vision changes, CP, palpitations, edema, SOB, wheezing, cough, abdominal pain, nausea, vomiting, diarrhea, melena , numbness/tingling, weakness, muscle/joint pain, anxiety/depression, active bleeding, or new skin discoloration/changes. Medications Current Inpatient Medications Medications (Trade) Dose Ordered Sig/Ursula Route Start Time Stop Time Status Last Admin Dose Admin Acetaminophen (Tylenol Tab) 650 mg Q4H PRN PO 04/14/16 18:30 05/14/16 18:29 04/15/16 05:49 650 MG Ondansetron HCl (Zofran Inj) 4 mg Q6H PRN IV 04/14/16 18:30 05/14/16 18:29 Amiodarone HCl (Cordarone Tab) 200 mg DAILY PO 04/15/16 09:00 05/15/16 08:59 04/17/16 08:05 200 MG Clopidogrel Bisulfate (plAVix TAB) 75 mg DAILY PO 04/15/16 09:00 05/15/16 08:59 04/17/16 08:06 75 MG Finasteride (Proscar Tab) 5 mg DAILY PO 04/15/16 09:00 05/15/16 08:59 04/17/16 08:06 5 MG Levothyroxine Sodium (Synthroid Tab) 25 mcg DAILYBB PO 04/15/16 06:00 05/15/16 05:59 04/17/16 05:30 25 MCG Senna/Docusate Sodium (Senokot S Tab) 1 tab QAM PO 04/15/16 09:00 05/15/16 08:59 04/17/16 08:06 1 TAB Simvastatin (Zocor Tab) 20 mg QPM PO 04/14/16 21:00 05/14/16 20:59 Future hold Warfarin Sodium (Coumadin Tab) 2 mg DAILY@1600 PO 04/15/16 16:00 05/15/16 15:59 04/16/16 16:32 2 MG Zolpidem Tartrate (Ambien Tab) 5 mg HSZ PO 04/14/16 22:00 05/14/16 21:59 04/16/16 22:10 5 MG Amoxicillin/ Clavulanate Potassium (Augmentin Tab) 875 mg BIDM PO 04/17/16 08:00 04/24/16 17:01 04/17/16 08:06 875 MG Objective Vital Signs Date Time Temp Pulse Resp B/P Pulse Ox O2 Delivery O2 Flow Rate FiO2 04/17/16 07:00 36.4 59 18 151/81 99 Room Air 04/17/16 00:18 36.8 62 18 136/67 97 Room Air 04/17/16 00:00 Room Air 04/16/16 16:15 90 Room Air 04/16/16 14:48 36.6 68 20 115/71 90 Room Air 04/16/16 09:06 36.3 65 20 120/62 95 Room Air 04/16/16 08:55 95 Room Air Physical Exam General Appearance: no apparent distress, + pertinent finding (supporting back brace on ) Eyes: normal inspection, PERRL ENT: hearing grossly normal Neck: supple Respiratory/Chest: lungs clear, no respiratory distress, no accessory muscle use Cardiovascular: regular rate, rhythm Abdomen: normal bowel sounds, non tender, soft Extremities: non-tender, + swelling (+2 pitting edema of left lower extremity from foot to mid-rodriguez- no firmness ), + pertinent finding (mild erythma of medial left ankle to mid calf region. lesions noted on medial ankle, crusted scabbing, no drainage. +warmth) Neurologic/Psychiatric: alert, normal mood/affect, oriented x 3 Skin: warm/dry, no rash Laboratory Results Last 24 Hours Test 04/17/16 07:38 04/17/16 07:58 White Blood Count 5.67 K/uL Red Blood Count 3.54 M/uL Hemoglobin 11.5 g/dL Hematocrit 34.3 % Mean Corpuscular Volume 96.9 fL Mean Corpuscular Hemoglobin 32.5 pg Mean Corpuscular Hemoglobin Concent 33.5 g/dl RDW Standard Deviation 50.4 fL RDW Coefficient of Variation 14.0 % Platelet Count 190 K/uL Mean Platelet Volume 10.5 fL Assessment and Plan 85 yo male with recent history of transverse process fractures and was at rehab at [facility], developed left lower extremity redness, warmth and pain Left leg cellulitis with severe sepsis/metabolic encephalopathy, POA, resolved: - Admit to telemetry -- Transferred to med/surg on 04/15 - IV fluids, Daptomycin IV (started on 04/15) x48 hrs + IV Zosyn x1 dose, follow up on blood cultures, repeated lactic acid -- d/c IV antibiotics and IVF, transition to oral Augmentin 875 mg PO BID x8 days to total 10 days of treatment. (04/17) - Hold BP medications as well as Flomax due to hypotension - Influenza negative - U/A unremarkable - CXR no acute findings - Follow CBC - Left lower extremity u/s- No DVT within the left lower extremity Acute renal failure: likely combination of infection, poor oral intake while on AMARILIS inhibitor, resolved: - Treated with IV fluids - Renal US to r/o obstructive picture- No evidence for hydronephrosis. Several small stable subcentimeter cortical cysts. - Hold AMARILIS inhibitor and HCTZ- resume at discharge - Follow PRP Elevated CK: likely due to cellulitis, perhaps some myositis in left leg, no chest pain and troponin normal, resolving: - Repeated, trending downward with IVF - Treated with IVF Urinary incontinence: - ?secondary to IVF. U/A negative, no urine culture- of no use at this point due to broad spectrum IV antibiotic treatment - Bladder scan - PSA 3.840 h/o atrial flutter: - Continue Amiodarone and Coumadin 2 mg PO daily - Follow INR. Titrate Coumadin to keep INR within therapeutic range 2.0-3.0 h/o stroke and CAD with stent: - Continue Plavix h/o DVT, left sided: - Continue Coumadin Recent transverse process fractures: - Continue PT/OT, back brace Hyperlipidemia: - Hold statin due to elevated CK- resume at discharge Hypothyroidism: - Continue Synthroid Code Status: - LEVEL I, FULL Dispo: - PT recommends patient returns to [facility] to complete rehab. regulatory services consultant following. - Convert to oral antibiotics on 04/17--> follow response. Hopefully discharge to [facility] tomorrow (04/18).
[2016-04-17 08:57] LABS: BUN/CREATININE RATIO 15.6 (10-20); CALCIUM 8.6 mg/dl (8.5-10.1); CREATININE 1.3 mg/dl (0.60-1.40)
[2016-04-17 15:56] VITALS: BP 161/84; PULSE 64; TEMP 36.4; O2SAT 96
[2016-04-17] MEDS ORDERED: WARFARIN SOD 3 MG TAB PO ONE (16:00)
[2016-04-17 16:30] VITALS: O2SAT 96
[2016-04-17] MEDS: WARFARIN SOD 2 MG TAB PO SCH (16:30)
[2016-04-17] MEDS: ZOLPIDEM TARTRATE 5 MG TAB PO SCH (21:36)
[2016-04-17 23:20] VITALS: BP 124/69; PULSE 59; TEMP 36.3; O2SAT 98
[2016-04-18] VITALS: O2SAT 96
[2016-04-18] MEDS: LEVOTHYROXINE 25 MCG TAB PO SCH (05:58)
[2016-04-18 06:22] LABS: HEMATOCRIT 32.7 % (42-52); MEAN CELL VOLUME 96.2 fL (80-100); MEAN CORPUSCULAR HEMOGLOBIN 31.5 pg (25-34); MEAN CORPUSCULAR HGB CONC 32.7 g/dl (32-36); MEAN PLATELET VOLUME 10.1 fL (7.4-10.4); PLATELET COUNT 212 K/uL (130-400); WHITE BLOOD COUNT 7.08 K/uL (4.8-10.8)
[2016-04-18 06:31] LABS: PROTHROMBIN TIME (PATIENT) 21.5 SECONDS (9.0-12.0)
[2016-04-18 06:49] LABS: BUN/CREATININE RATIO 17.7 (10-20); CALCIUM 8.2 mg/dl (8.5-10.1); CREATININE 1.2 mg/dl (0.60-1.40); POTASSIUM 4.2 mmol/L (3.5-5.1)
[2016-04-18 07:27] VITALS: BP 116/63; PULSE 58; TEMP 36.8; O2SAT 98
[2016-04-18] MEDS: AMOXICILLIN/CLAVULANATE TAB 875 MG TAB PO SCH ×2 (08:09→17:41)
[2016-04-18] MEDS: AMIODARONE 200 MG TAB PO SCH (08:10)
[2016-04-18] MEDS: CLOPIDOGREL BISULFATE 75 MG TAB PO SCH (08:10)
[2016-04-18] MEDS: FINASTERIDE 5 MG TAB PO SCH (08:11)
[2016-04-18] MEDS: DOCUSATE SODIUM/SENNA 50/8.6MG TAB PO SCH (08:11)
[2016-04-18] MEDS ORDERED: AMOX1TAB43 PO (08:37)
--- NOTE | 2016-04-18 08:51 | Discharge Summary ---
Discharge Summary Admission Date: Apr 14, 2016 at 18:23 Discharge Date: Apr 18, 2016 Discharge Disposition: Rehab Principal Diagnosis: Left lower extremity cellulitis Problems/Secondary Diagnoses: 1. Acute renal failure 2. Urinary incontinence 3. A.flutter, INR subtherapeutic 4. Left lower extremity DVT 5. Transverse process fractures Immunizations: Have You Had Influenza Vaccine: Yes Influenza Vaccine Date: Nov 29, 2010 History of Tetanus Vaccine?: utd History of Pneumococcal: Unknown Pneumococcal Date: Dec 02, 2009 History of Hepatitis B Vaccine: Unknown Procedures: CHEST ONE VIEW PORTABLE CLINICAL HISTORY: Evaluate Fever/Sepsis dyspnea COMPARISON STUDY: 03/28/2016 FINDINGS: The bones soft tissues and hemidiaphragms are normal. The cardiomediastinal silhouette is normal. The lungs are clear. The pulmonary vasculature is normal. IMPRESSION: Negative chest. Electronically signed by: Aldo Brooks M.D. 04/14/2016 4:54 PM Dictated Date/Time: 04/14/2016 4:54 PM The status of this report is Signed. Draft = Not yet reviewed or approved by Radiologist. Signed = Reviewed and approved by Radiologist. LEFT LOWER EXTREMITY VENOUS DOPPLER HISTORY: swollen red leg COMPARISON STUDY: None. FINDINGS: There is normal compressibility, flow, and augmentation within the left lower extremity deep venous system. A 1.7 x 2.6 x 0.6 cm popliteal cyst. IMPRESSION: No DVT within the left lower extremity. Electronically signed by: Mike Nieto M.D. 04/15/2016 11:05 AM Dictated Date/Time: 04/15/2016 11:04 AM The status of this report is Signed. Draft = Not yet reviewed or approved by Radiologist. Signed = Reviewed and approved by Radiologist. RENAL ULTRASOUND HISTORY: Renal failure acute renal failure, minimal urine output COMPARISON: 03/29/2016 FINDINGS: Right kidney: Maximum dimension 10.7 cm. Several small stable cortical cysts. No evidence for hydronephrosis. Left kidney: Maximum dimension 10.2 cm. Several very small cortical cysts. No evidence for hydronephrosis. Bladder: No bladder wall thickening. The bilateral ureteral jets were identified. IMPRESSION: No evidence for hydronephrosis. Several small stable subcentimeter cortical cysts. Electronically signed by: Aldo Brooks M.D. 04/15/2016 11:13 AM Dictated Date/Time: 04/15/2016 11:09 AM The status of this report is Signed. Draft = Not yet reviewed or approved by Radiologist. Signed = Reviewed and approved by Radiologist. Medication Reconciliation New Medications: Amoxicillin & Pot Clavulanate (Amoxicillin/Clavulanate P) 1 Tab Tab 875 MG PO BIDM for 11 Days, #22 TAB Continued Medications: Acetaminophen Tab (Tylenol) 325 Mg Tab 650 MG PO Q6 PRN for Pain DO NOT EXCEED 3GM APAP IN 24 HRS Amiodarone Hcl (Cordarone) 200 Mg Tab 200 MG PO DAILY, TAB Amlodipine Besylate (Norvasc) 5 Mg Tab 5 MG PO HS Cholecalciferol (D3-50) 50,000 Unit Cap 1 CAP PO WK for 84 Days, #12 CAP Clopidogrel (Plavix) 75 Mg Tab 75 MG PO DAILY, TAB Finasteride (Proscar) 5 Mg Tab 5 MG PO DAILY, TAB Hydrochlorothiazide (Hydrochlorothiazide) 12.5 Mg Tab 12.5 MG PO DAILY Ipratropium-Albuterol (Duoneb) 3 Ml Nebu 1 TREATMENT INH Q6 PRN for SOB/Wheezing, INHA Levothyroxine Sodium (Synthroid) 25 Mcg Tab 1 TAB PO DAILY Lisinopril (Zestril) 20 Mg Tab 20 MG PO AMPM Polyethylene Glycol 3350 (Glycolax) 1 Pow Pow 17 GM PO UD PRN for Constipation, #527 GM Senna/Docusate Sod (Senokot S) 1 Tab Tab 1 TAB PO QAM, TAB Simvastatin (Zocor) 20 Mg Tab 20 MG PO QPM TAKE THIS MEDICATION WITH SUPPER. Tamsulosin Hcl (Flomax) 0.4 Mg Cap 0.4 MG PO HS, CAP Tramadol Hcl (Ultram) 50 Mg Tab 1 TAB PO TID PRN for Pain for 30 Days, #30 TAB Warfarin Sodium (Coumadin) 2 Mg Tab 1 TAB PO DAILY for 30 Days, #30 TAB 3 Refills start after INR is below 2.5 take as directed Zolpidem Tartrate (Ambien) 5 Mg Tab 5 MG PO HS, TAB Discontinued Medications: Ceftriaxone Sod (Rocephin) 1 Gm Inj 1 GM IM QPM for 2 Days, VIAL Discharge Exam Review of Systems: Constitutional: No chills, No fatigue, No fever, No sweats, No weakness Respiratory: No cough, No hemoptysis, No shortness of breath Cardiovascular: No chest pain, No edema, No palpitations Abdomen: No constipation, No diarrhea, No nausea, No pain, No vomiting Musculoskeletal: + joint pain, + swelling, No calf pain, No muscle pain Genitourinary - Male: No dysuria, No hematuria, No urinary incontinence Neurologic: No numbness/tingling, No weakness Psychiatric: No anxiety, No depression symptoms Hematologic / Lymphatic: No abnormal bleeding/bruising Integumentary: No itch, No new/changing skin lesions, No rash Physical Exam: General Appearance: no apparent distress, + pertinent finding (supporting back brace on ) Eyes: normal inspection, PERRL ENT: hearing grossly normal Neck: no adenopathy Respiratory/Chest: lungs clear, no respiratory distress, no accessory muscle use Cardiovascular: regular rate, rhythm Abdomen / GI: normal bowel sounds, non tender, soft Extremities: no calf tenderness, + swelling (+2 pitting edema of left lower extremity from ankle to mid rodriguez- nonfirm ), + pertinent finding (Crusted/ scabbed lesion of medial left ankle, no obvious drainage. +erythema and warmth ) Neurologic/Psychiatric: alert, normal mood/affect, oriented x 3 Skin: warm/dry, no rash Hospital Course 85 yo male with recent history of transverse process fractures and was at rehab at [facility], developed left lower extremity redness, warmth and pain Left leg cellulitis with severe sepsis/metabolic encephalopathy, POA, resolved: - Admit to telemetry -- Transferred to med/surg on 04/15 - IV fluids, Daptomycin IV (started on 04/15) x48 hrs + IV Zosyn x1 dose, follow up on blood cultures, repeated lactic acid -- d/c IV antibiotics and IVF, transition to oral Augmentin 875 mg PO BID x12 days to total 14 days of treatment. (04/17) - Hold BP medications as well as Flomax due to hypotension - Influenza negative - U/A unremarkable - CXR no acute findings - Follow CBC - Left lower extremity u/s- No DVT within the left lower extremity Acute renal failure: likely combination of infection, poor oral intake while on AMARILIS inhibitor, resolved: - Treated with IV fluids - Renal US to r/o obstructive picture- No evidence for hydronephrosis. Several small stable subcentimeter cortical cysts. - Hold AMARILIS inhibitor and HCTZ- resume at discharge - Follow PRP Elevated CK: likely due to cellulitis, perhaps some myositis in left leg, no chest pain and troponin normal, resolving: - Repeated, trending downward with IVF - Treated with IVF Urinary incontinence, resolved: - ?secondary to IVF. U/A negative, no urine culture- of no use at this point due to broad spectrum IV antibiotic treatment - Bladder scan - PSA 3.840 At discharge, patient states incontinence has subsided since d/c IVF h/o atrial flutter: - Continue Amiodarone and Coumadin 2 mg PO daily - Follow INR. Titrate Coumadin to keep INR within therapeutic range 2.0-3.0 At discharge, INR 2.0. Will need INR checked on 04/19 h/o stroke and CAD with stent: - Continue Plavix h/o DVT, left sided: - Continue Coumadin Recent transverse process fractures: - Continue PT/OT, back brace Hyperlipidemia: - Hold statin due to elevated CK- resume at discharge Hypothyroidism: - Continue Synthroid Code Status: - LEVEL I, FULL Dispo: - Discharge to [facility] Total Time Spent: Greater than 30 minutes This includes examination of the patient, discharge planning, medication reconciliation, and communication with other providers. Discharge Instructions Please refer to the electronic Patient Visit Report (Discharge Instructions) for additional information. Follow-Up Please follow-up with [facility] Provider within 24-48 hrs. Please follow-up/keep all of your subspecialty appointments. Additional Copies To Rafa Gonzalez M.D.
--- NOTE | 2016-04-18 08:53 | Discharge Instructions ---
Discharge Instructions Admission Reason for Admission: Acute Renal Failure, Cellulitis Leg Discharge Discharge Diagnosis / Problem: Left lower extremity cellulitis; Acute renal failure Discharge Goals Goal(s): Decrease discomfort, Diagnostic testing, Therapeutic intervention, Prevent Disease Progression Activity Recommendations Activity Limitations: resume your previous activity . Instructions / Follow-Up Instructions / Follow-Up Cellulitis (infection of left leg): Take Augmentin 875 mg by mouth twice per day until prescription is completed. It is important you take entire course of antibiotic. INR will need checked on 04/19. Your INR has been below your therapeutic goal during your hospital stay. It is important to have follow-up INR and follow further instructions for Coumadin dosage. It is important you stay well hydrated. Please drink plenty of fluids, enough to keep your urine light yellow/clear colored. Prior to discharge, you stated your urinary incontinence ("wetting the bed") has improved since stopping the IV fluids. If urinary incontinence returns, you will need to follow-up/discuss this further with your PCP. You need to follow-up with [facility] provider/PCP regarding your left lower extremity discomfort with movement. You may resume all regular home medications only as prescribed to you. Please follow-up with [facility] provider within 24-48 hrs. Please follow-up/keep all of your subspecialty appointments. Current Hospital Diet Patient's current hospital diet: AHA Diet (Heart Healthy) Discharge Diet Recommended Diet: AHA Diet (Heart Healthy) Procedures Procedures Performed: 1. CXR 2. Left lower extremity ultrasound 3. Renal ultrasound Pending Studies Studies pending at discharge: no Laboratory Results Last 24 Hours Test 04/18/16 05:55 04/18/16 06:00 White Blood Count 7.08 K/uL Red Blood Count 3.40 M/uL Hemoglobin 10.7 g/dL Hematocrit 32.7 % Mean Corpuscular Volume 96.2 fL Mean Corpuscular Hemoglobin 31.5 pg Mean Corpuscular Hemoglobin Concent 32.7 g/dl RDW Standard Deviation 49.7 fL RDW Coefficient of Variation 14.0 % Platelet Count 212 K/uL Mean Platelet Volume 10.1 fL Sodium Level 144 mmol/L Potassium Level 4.2 mmol/L Chloride Level 110 mmol/L Carbon Dioxide Level 25 mmol/L Anion Gap 9.0 mmol/L Blood Urea Nitrogen 21 mg/dl Creatinine 1.20 mg/dl Est Creatinine Clear Calc Drug Dose 56.3 ml/min Estimated GFR () 64.4 Estimated GFR (Non- 55.6 BUN/Creatinine Ratio 17.7 Random Glucose 101 mg/dl Calcium Level 8.2 mg/dl Prothrombin Time 21.5 SECONDS Prothromb Time International Ratio 2.0 Medical Emergencies . Who to Call and When: Medical Emergencies: If at any time you feel your situation is an emergency, please call 911 immediately. . Non-Emergent Contact Non-Emergency issues call your: Primary Care Provider Call Non-Emergent contact if: you have a fever, temperature is above 100.5, your pain is not controlled, your pain is worsening, your pain is unusual for you, your pain is concerning you, you have any medication questions . . "Provider Documentation" section prepared by Deyanira Bennett. VTE Core Measure Inpt VTE Proph given/why not?: Warfarin (Coumadin)
[2016-04-18] MEDS: WARFARIN SOD 2 MG TAB PO SCH (15:10)
[2016-04-18 15:31] VITALS: BP 127/69; PULSE 62; TEMP 36.7; O2SAT 97
[2016-04-18 16:10] VITALS: BP 127/69; PULSE 62; TEMP 36.7; O2SAT 97
== END 2016-04-18 20:12 | DRG 871 ==
LOC: ENRESERVTM → ENRESERVDT → EDBD 15:40 → C.EDB 15:41 → C.2T 18:23 → C.MS4W 04-15 17:24
PROVIDERS: ADMIT Internal Medicine; ATTEND Hospitalist
DX: A41.9 Sepsis, unspecified organism (principal); G93.41 Metabolic encephalopathy; L03.116 Cellulitis of left lower limb; N17.9 Acute kidney failure, unspecified; Z86.73 Personal history of transient ischemic attack (TIA), and cerebral infarction without residual deficits; I25.10 Atherosclerotic heart disease of native coronary artery without angina pectoris; Z95.5 Presence of coronary angioplasty implant and graft; Z86.718 Personal history of other venous thrombosis and embolism; I10 Essential (primary) hypertension; E78.5 Hyperlipidemia, unspecified; Z82.49 Family history of ischemic heart disease and other diseases of the circulatory system; R65.20 Severe sepsis without septic shock; Z79.01 Long term (current) use of anticoagulants; E03.9 Hypothyroidism, unspecified; N28.1 Cyst of kidney, acquired; R32 Unspecified urinary incontinence; E86.0 Dehydration; Z79.899 Other long term (current) drug therapy; Z79.02 Long term (current) use of antithrombotics/antiplatelets; Z83.42 Family history of familial hypercholesterolemia

== ENCOUNTER → 2016-05-06 | Outpatient (CLI) | payer OTHER ==
[~2016-05-06] MED LIST changes: +ACET325T96 PO; +AMIO200T4 PO; +AMOX1TAB43 PO; -CRD200 PO; +ENOX100I SQ; -FLM4 PO; +IPRASOL4 INH; +LEVO100T7 PO; -MRLP17 PO; +TAMS0.4C38 PO; -TRAM-453 PO; +WARF5TAB7 PO; -ZOLP10TA PO; +ZOLP5TAB PO; +[UNRECOGNIZED DRUG - CODE] PO
--- NOTE | 2016-05-06 15:41 | DIAGNOSTIC IMAGING REPORT ---
ULTRASOUND LEFT VENOUS DOPP LOWER EXT UNILAT CLINICAL HISTORY: M79.89 Left leg swelling COMPARISON STUDY: 04/15/2016 FINDINGS: Real-time and color flow Doppler imaging were performed. Flow was seen within the femoral, popliteal and calf veins with no intraluminal thrombus demonstrated. The saphenous vein is patent. IMPRESSION: No evidence of left lower extremity DVT. Electronically signed by: Kris Cherry M.D. 05/06/2016 3:39 PM Dictated Date/Time: 05/06/2016 3:39 PM
--- NOTE | 2016-05-15 12:42 | CODING QUERY MEDICAL NECESSITY ---
SUPPORTING DIAGNOSIS NEEDED A supporting diagnosis is required for the test/procedure performed on this patient in order for us to be reimbursed by the patient's insurance. Please provide a supporting diagnosis for the following test/procedure listed below next to the test name along with your signature. *If there is no additional diagnosis for this patient that would support the following test/procedure please document that below next to the test/procedure. Test(s)/Procedure(s) that require a supporting diagnosis: DOS 05/06 * LLE Venous Doppler DIAGNOSIS: * TSH DIAGNOSIS: Provider Signature: Date: Thank you Chen Maciel Health Information Management Once completed, please kindly fax back to [phone] For questions please call [phone]
== END | disposition home or self-care (01) ==
LOC: C.ULTR 15:02
PROVIDERS: ATTEND Nurse Practitioner
DX: M79.89 Other specified soft tissue disorders (principal); Z86.718 Personal history of other venous thrombosis and embolism; R60.9 Edema, unspecified; I82.409 Acute embolism and thrombosis of unspecified deep veins of unspecified lower extremity; E03.9 Hypothyroidism, unspecified

== ENCOUNTER → 2016-05-06 | Outpatient (CLI) | payer OTHER ==
[2016-05-06 17:53] LABS: INR 2.4 (0.9-1.1); PROTHROMBIN TIME (PATIENT) 26.8 SECONDS (9.0-12.0)
[2016-05-06 18:14] LABS: THYROID STIMULATING HORMONE 5.54 uIu/ml (0.300-4.500)
== END | disposition home or self-care (01) ==
LOC: C.LABBFT 12:17
PROVIDERS: ATTEND Internal Medicine
DX: Z86.718 Personal history of other venous thrombosis and embolism (principal)

== ENCOUNTER → 2016-05-31 | Outpatient (CLI) | payer OTHER ==
[2016-05-31 16:47] LABS: BASO % 0.2 %; BASO ABS # 0.01 K/uL (0-0.2); COMPLETE YES; EOS % 2.4 %; HEMATOCRIT 39.7 % (42-52); IG% 0.2 %; LYMPH % 17.7 %; LYMPH ABS # 1.09 K/uL (1.2-3.4); MEAN CELL VOLUME 95.7 fL (80-100); MEAN CORPUSCULAR HEMOGLOBIN 31.6 pg (25-34); MEAN PLATELET VOLUME 10.8 fL (7.4-10.4); MONO % 6.5 %; PLATELET COUNT 179 K/uL (130-400); RED BLOOD COUNT 4.15 M/uL (4.7-6.1); WHITE BLOOD COUNT 6.15 K/uL (4.8-10.8)
== END | disposition home or self-care (01) ==
LOC: C.LABBFT 12:24
PROVIDERS: ATTEND Internal Medicine
DX: L03.119 Cellulitis of unspecified part of limb (principal); I82.409 Acute embolism and thrombosis of unspecified deep veins of unspecified lower extremity; I48.0 Paroxysmal atrial fibrillation

== ENCOUNTER → 2016-06-03 | Outpatient (CLI) | payer OTHER ==
[2016-06-03 18:13] LABS: BLOOD UREA NITROGEN 26 mg/dl (7-18); BUN/CREATININE RATIO 16.3 (10-20); CALCIUM 8.9 mg/dl (8.5-10.1); CARBON DIOXIDE 26 mmol/L (21-32); CHLORIDE 106 mmol/L (98-107); GLUCOSE 84 mg/dl (70-99); POTASSIUM 4.1 mmol/L (3.5-5.1); SODIUM 142 mmol/L (136-145)
== END | disposition home or self-care (01) ==
LOC: C.LABBFT 14:05
PROVIDERS: ATTEND Physician Assistant Medical
DX: L03.119 Cellulitis of unspecified part of limb (principal)

== ENCOUNTER → 2016-06-07 | Outpatient (CLI) | payer OTHER ==
[2016-06-07 12:13] LABS: BLOOD UREA NITROGEN 28 mg/dl (7-18); BUN/CREATININE RATIO 18.5 (10-20); CALCIUM 9.1 mg/dl (8.5-10.1); CARBON DIOXIDE 26 mmol/L (21-32); CHLORIDE 108 mmol/L (98-107); GLUCOSE 122 mg/dl (70-99); POTASSIUM 4.1 mmol/L (3.5-5.1); SODIUM 144 mmol/L (136-145)
== END | disposition home or self-care (01) ==
LOC: C.LABBFT 09:23
PROVIDERS: ATTEND Physician Assistant Medical
DX: E03.9 Hypothyroidism, unspecified (principal); N17.9 Acute kidney failure, unspecified; I26.99 Other pulmonary embolism without acute cor pulmonale; I82.409 Acute embolism and thrombosis of unspecified deep veins of unspecified lower extremity; I48.0 Paroxysmal atrial fibrillation

== ENCOUNTER → 2016-06-17 | Outpatient (CLI) | payer OTHER | END | disposition home or self-care (01) | LOC: C.LABBFT 13:52 | PROVIDERS: ATTEND Internal Medicine | DX: R79.9 Abnormal finding of blood chemistry, unspecified (principal) ==

== ENCOUNTER → 2016-07-30 | Outpatient (CLI) | payer OTHER ==
[~2016-07-30] MED LIST changes: -CHOLCAP2 PO
== END | disposition home or self-care (01) ==
LOC: C.LABBFT 10:54
PROVIDERS: ATTEND Internal Medicine
DX: R79.9 Abnormal finding of blood chemistry, unspecified (principal)

== ENCOUNTER 2016-10-06 12:16 | Emergency (ER) | payer OTHER ==
[~2016-10-06] VITALS: Ht 177.8 cm; Wt 98.7 kg
[~2016-10-06 12:16] MED LIST changes: -ENOX100I SQ; -LEVO100T7 PO; -WARF5TAB7 PO
[2016-10-06 12:20] VITALS: TEMP 37; Ht 177.8 cm; Wt 98.7 kg
--- NOTE | 2016-10-06 13:01 | DIAGNOSTIC IMAGING REPORT ---
LEFT KNEE 3 VIEWS CLINICAL HISTORY: Left knee pain COMPARISON: None. DISCUSSION: No acute fractures are visualized. There are advanced osteoarthritic changes with marked narrowing medial joint compartment. There are dorsal patellar spurs. There are calcifications within the infrapatellar tendon and quadriceps insertion. There is a medial calcified loose body. Multiple calcifications within the medial soft tissues of the lower leg, are likely vascular. IMPRESSION: 1. No acute fractures 2. Advanced osteoarthritic changes. Electronically signed by: Kris Cherry M.D. 10/06/2016 1:00 PM Dictated Date/Time: 10/06/2016 12:59 PM
--- NOTE | 2016-10-06 14:16 | DIAGNOSTIC IMAGING REPORT ---
ULTRASOUND LEFT VENOUS DOPP LOWER EXT UNILAT CLINICAL HISTORY: Left leg swelling COMPARISON STUDY: 05/06/2016 FINDINGS: No thrombus was visualized in the left common femoral, superficial femoral, or popliteal veins. There is age-indeterminate thrombus within one of the paired posterior tibial veins. This was not present in April 2016. There is broken color-flow within the left peroneal vein, consistent with age-indeterminate thrombus. Flow in the proximal anterior tibial veins appear normal. IMPRESSION: Interval development of DVT within the left posterior tibial and peroneal veins. No evidence of [id number] thrombus. Electronically signed by: Kris Cherry M.D. 10/06/2016 2:15 PM Dictated Date/Time: 10/06/2016 2:13 PM
[2016-10-06] MEDS ORDERED: LEVO100T7 PO (14:28)
[2016-10-06] MEDS ORDERED: WARF5TAB7 PO (14:28)
[2016-10-06 15:20] LABS: BASO % 0.5 %; BASO ABS # 0.03 K/uL (0-0.2); COMPLETE YES; EOS % 3.5 %; HEMATOCRIT 40.7 % (42-52); IG% 0.3 %; LYMPH ABS # 1.84 K/uL (1.2-3.4); MEAN CELL VOLUME 92.9 fL (80-100); MEAN CORPUSCULAR HEMOGLOBIN 30.8 pg (25-34); MEAN CORPUSCULAR HGB CONC 33.2 g/dl (32-36); MONO % 6.4 %; NEUT % 61.3 %; PLATELET COUNT 253 K/uL (130-400); RED BLOOD COUNT 4.38 M/uL (4.7-6.1); WHITE BLOOD COUNT 6.58 K/uL (4.8-10.8)
[2016-10-06 15:33] LABS: INR 2.3 (0.9-1.1); PROTHROMBIN TIME (PATIENT) 25.8 SECONDS (9.0-12.0)
[2016-10-06] MEDS ORDERED: ENOX100I SQ (16:22)
[2016-10-06] MEDS ORDERED: NURSING VERBAL MED ORDER ONE (16:45)
[2016-10-06] MEDS ORDERED: LOVENOX TEACHING KIT ONE (17:00)
[2016-10-06 17:19] VITALS: BP 133/71; PULSE 56; O2SAT 96
--- NOTE | 2016-10-06 18:31 | EMERGENCY ROOM VISIT NOTE ---
History Report prepared by Ruby: Noman Osorio Under the Supervision of: Dr. Anthony Michel D.O. First contact with patient: 12:24 Chief Complaint: KNEEPAIN Stated Complaint: Left knee pain History of Present Illness The patient is a 86 year old male who presents to the Emergency Room with complaints of intermittent left posterior knee pain. He describes his pain as "pressure". He states that his pain began after his leg gave out and he fell two months ago. It does radiate down the anterior portion of the rodriguez intermittently. 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 He is currently taking Coumadin. Previous INR is have been supratherapeutic. Pt denies headache, problems with urination or defecation, groin pain or numbness, change in vision, fevers, weakness, numbness, chest pain , shortness of breath, nausea, vomiting, diarrhea, pain with urination, and melena. He has a history of recent leg cellulitis. Source of History: patient Onset: two months ago Position: knee (left posterior) Quality: pressure Timing: intermittent Associated Symptoms: No fevers, No headache, No chest pain, No SOB, No nausea, No vomiting, No diarrhea, No urinary symptoms, No weakness, No numbness Note: Pt denies problems with urination or defecation, or groin pain or numbness. Review of Systems See HPI for pertinent positives & negatives. A total of 10 systems reviewed and were otherwise negative. Past Medical & Surgical Medical Problems: (1) Acute Renal Failure, Unspecified (2) Coron Atheroscler Nos Type Vessel, [place] (3) Cva (4) Hyperlipidemia Nec/Nos (5) Hypertension Nos (6) Hypotension (7) Intracerebral Hemorrhage Family History No pertinent family history Social History Smoking Status: Never Smoker Alcohol Use: none Drug Use: none Marital Status: Housing Status: half-way Occupation Status: retired Current/Historical Medications Scheduled Amiodarone Hcl (Cordarone), 200 MG PO DAILY Amlodipine Besylate (Norvasc), 5 MG PO HS Amoxicillin & Pot Clavulanate (Amoxicillin/Clavulanate P), 875 MG PO BIDM Clopidogrel (Plavix), 75 MG PO DAILY Enoxaparin (Lovenox), 100 MG SQ BID Finasteride (Proscar), 5 MG PO DAILY Hydrochlorothiazide (Hydrochlorothiazide), 12.5 MG PO DAILY Levothyroxine Sodium (Levothyroxine Sodium), 1 TAB PO DAILYBB Lisinopril (Zestril), 20 MG PO AMPM Senna/Docusate Sod (Senokot S), 1 TAB PO QAM Simvastatin (Zocor), 20 MG PO QPM Tamsulosin Hcl (Flomax), 0.4 MG PO HS Warfarin Sod (Jantoven), 0.5 TAB PO DAILY Zolpidem Tartrate (Ambien), 5 MG PO HS Scheduled PRN Acetaminophen Tab (Tylenol), 650 MG PO Q6 PRN for Pain Ipratropium-Albuterol (Duoneb), 1 TREATMENT INH Q6 PRN for SOB/Wheezing Polyethylene Glycol 3350 (Glycolax), 17 GM PO UD PRN for Constipation Allergies Coded Allergies: No Known Allergies (Verified , NONE, 10/06/16) Physical Exam Vital Signs Date Time Temp Pulse Resp B/P (MAP) Pulse Ox O2 Delivery O2 Flow Rate FiO2 10/06/16 17:19 56 20 133/71 96 10/06/16 16:13 55 20 149/74 94 Room Air 10/06/16 14:49 58 20 157/68 98 Room Air 10/06/16 12:20 37.0 75 18 197/81 96 Room Air Physical Exam GENERAL: Sitting up in bed, alert, well appearing, well nourished, no distress, non-toxic. EYE EXAM: normal conjunctiva. OROPHARYNX: no exudate, no erythema, lips, buccal mucosa, and tongue normal and mucous membranes are moist NECK: supple, no nuchal rigidity, no adenopathy, non-tender LUNGS: Clear to auscultation. Normal chest wall mechanics HEART: no murmurs, S1 normal and S2 normal ABDOMEN: abdomen soft, normo-active bowel sounds, no masses, no rebound or guarding. Abdominal hernia around the umbilicus which is non-tender. BACK: Back is symmetrical on inspection and there is no deformity, no midline tenderness, no CVA tenderness. SKIN: no rashes and no bruising UPPER EXTREMITIES: upper extremities are grossly normal. LOWER EXTREMITIES: Full active and passive ROM of HIP, knee, and ankle bilaterally. Minimal tenderness with discomfort with flection of the left knee greater than 90 degrees. Negative anterior and posterior drawer. Left calf is slightly larger than right. DPs 2/4 bilaterally. Gross sensation is intact. NEURO EXAM: Normal sensorium, cranial nerves II-XII grossly intact, normal speech, no gross weakness of arms, no gross weakness of legs. Medical Decision & Procedures ER Provider Diagnostic Interpretation: Radiology results as stated below per my review and the radiologist's interpretation: ULTRASOUND LEFT VENOUS DOPP LOWER EXT UNILAT FINDINGS: No thrombus was visualized in the left common femoral, superficial femoral, or popliteal veins. There is age-indeterminate thrombus within one of the paired posterior tibial veins. This was not present in April 2016. There is broken color-flow within the left peroneal vein, consistent with age-indeterminate thrombus. Flow in the proximal anterior tibial veins appear normal. IMPRESSION: Interval development of DVT within the left posterior tibial and peroneal veins. No evidence of [id number] thrombus. Electronically signed by: Kris Cherry M.D. LEFT KNEE 3 VIEWS DISCUSSION: No acute fractures are visualized. There are advanced osteoarthritic changes with marked narrowing medial joint compartment. There are dorsal patellar spurs. There are calcifications within the infrapatellar tendon and quadriceps insertion. There is a medial calcified loose body. Multiple calcifications within the medial soft tissues of the lower leg, are likely vascular. IMPRESSION: 1. No acute fractures 2. Advanced osteoarthritic changes. Electronically signed by: Kris Cherry M.D. Laboratory Results 10/06/16 15:05 Red Blood Count 4.38, Mean Corpuscular Volume 92.9, Mean Corpuscular Hemoglobin 30.8, Mean Corpuscular Hemoglobin Concent 33.2, Mean Platelet Volume 10.0, Neutrophils (%) (Auto) 61.3, Lymphocytes (%) (Auto) 28.0, Monocytes (%) (Auto) 6.4, Eosinophils (%) (Auto) 3.5, Basophils (%) (Auto) 0.5, Neutrophils # (Auto) 4.04, Lymphocytes # (Auto) 1.84, Monocytes # (Auto) 0.42, Eosinophils # (Auto) 0.23, Basophils # (Auto) 0.03 Test 10/06/16 15:05 White Blood Count 6.58 K/uL (4.8-10.8) Red Blood Count 4.38 M/uL (4.7-6.1) Hemoglobin 13.5 g/dL (14.0-18.0) Hematocrit 40.7 % (42-52) Mean Corpuscular Volume 92.9 fL (80-100) Mean Corpuscular Hemoglobin 30.8 pg (25-34) Mean Corpuscular Hemoglobin Concent 33.2 g/dl (32-36) Platelet Count 253 K/uL (130-400) Mean Platelet Volume 10.0 fL (7.4-10.4) Neutrophils (%) (Auto) 61.3 % Lymphocytes (%) (Auto) 28.0 % Monocytes (%) (Auto) 6.4 % Eosinophils (%) (Auto) 3.5 % Basophils (%) (Auto) 0.5 % Neutrophils # (Auto) 4.04 K/uL (1.4-6.5) Lymphocytes # (Auto) 1.84 K/uL (1.2-3.4) Monocytes # (Auto) 0.42 K/uL (0.11-0.59) Eosinophils # (Auto) 0.23 K/uL (0-0.5) Basophils # (Auto) 0.03 K/uL (0-0.2) RDW Standard Deviation 47.4 fL (36.4-46.3) RDW Coefficient of Variation 13.9 % (11.5-14.5) Immature Granulocyte % (Auto) 0.3 % Immature Granulocyte # (Auto) 0.02 K/uL (0.00-0.02) Prothrombin Time 25.8 SECONDS (9.0-12.0) Prothromb Time International Ratio 2.3 (0.9-1.1) Laboratory results per my review. Medications Administered Medications (Trade) Dose Ordered Sig/Ursula Route Start Time Stop Time Status Last Admin Dose Admin Miscellaneous Information (Nursing Verbal Med Order) 1 ea ONE ONCE N/A 10/06/16 16:45 10/06/16 16:46 DC 10/06/16 16:45 1 EA Miscellaneous (Lovenox Teaching Kit) 1 ea NOW ONCE N/A 10/06/16 17:00 10/06/16 17:01 DC 10/06/16 17:00 1 EA ED Course ED COURSE: Vital signs were reviewed and showed hypertension. The patients medical record was reviewed The above diagnostic studies were performed and reviewed. ED treatments and interventions as stated above. 1225: The patient was evaluated in room B8. A complete history and physical examination was performed. 1401: I updated the patient. He is doing well, currently leaving for [place]. 1624: Upon reevaluation, the patient is resting comfortably. I discussed my findings with the patient and he understands and agrees with the treatment plan. Based on the patients age, coexisting illnesses, exam and lab findings the decision to treat as an outpatient was made. The patient remained stable while under my care. The patient appeared well at the time of discharge. Medical Decision Differential diagnosis: Etiologies such as fracture, dislocation, neurovascular compromise, compartment syndrome, soft tissue injury, as well as others were entertained. Patient is an 86-year-old male who presents the ER for left knee pain in the popliteal region. He notes that has been clicking and becoming painful. X-ray show no acute fracture but severe arthritis. Duplex shows a DVT. INR was therapeutic. Upon review of his chart previous INRs were all therapeutic with exception of March. He did not have an INR in our system for August. Last duplex of his left lower extremity was completely negative. His previous INRs were mostly supratherapeutic. I discussed with Dr. Mcconnell who notes with his renal function he would best be served on [place]. This would be difficult to reverse especially in the setting of his previous brain bleed. At this time we both felt it best that he discuss this with his PCP. Will place on Lovenox 100 mg twice a day which she will start tonight at 10 PM. He will not take Coumadin tonight. He will see his PCP tomorrow and care management will help set up this appointment. Dr. Mcconnell will call the PCP tomorrow to discuss findings today. Discussed with Pt concerning signs and symptoms to watch out for. Pt was instructed to follow up with their PCP and discussed with the patient their option to return to the ED at anytime for persistent or worsening symptoms. The appropriate anticipatory guidance and out-patient management, including indications for return to the emergency department, were explained at length to the patient and understood. Medication Reconcilliation Current Medication List: was personally reviewed by me Blood Pressure Screening Patient's blood pressure: Elevated blood pressure Blood pressure disposition: Referred to PCP Consults Time Called: 1532 Consulting Physician: Dr. Perez -Pathology Returned Call: [phone] I reviewed the patient's case with Dr. Perez. She states that Eliquis would be ideal due to the patient's history of ICH, but due to kidney function the patient should be placed on Lovenox. Impression Primary Impression: DVT (deep venous thrombosis) Additional Impression: Knee pain Scribe Attestation The scribe's documentation has been prepared under my direction and personally reviewed by me in its entirety. I confirm that the note above accurately reflects all work, treatment, procedures, and medical decision making performed by me. Departure Information Dispostion Home / Self-Care Prescriptions Enoxaparin (LOVENOX) 100 Mg/Ml Inj 100 MG SQ BID for 5 Days Prov: Anthony Michel, DO 10/06/16 Referrals Rafa Gonzalez M.D. (PCP) Forms HOME CARE DOCUMENTATION FORM, IMPORTANT VISIT INFORMATION Patient Instructions DVT, Enoxaparin injection, My [facility] Additional Instructions Please follow up with your primary care doctor or if you are a student, [facility] with in the next 24 hours. Any worsening of your symptoms, please return to the ED immediately. This includes any fevers greater than 100.4, worsening pain, chest pain, shortness breath, persistent nausea, vomiting, unable to eat or drink, or any other concerning signs or symptoms from your standpoint. You were found to have a blood pressure greater than 120 systolic over 90 diastolic. Due to the new Medicare guidelines, we are now recommending that you follow up with your primary care doctor in regards to this elevated blood pressure. I think your knee pain is likely secondary to arthritis. You were found to have small DVTs in your left lower extremity while on Coumadin which has been therapeutic. These DVTs are new from your old ultrasound in April. With your previous brain bleed secondary to stroke it would be very risky to increase her Coumadin level. Stop Coumadin. Please start giving Lovenox shots twice a day starting tonight at 7 PM until you see your primary care doctor tomorrow Problem Qualifiers Primary Impression: DVT (deep venous thrombosis) DVT location: lower extremity Affected thrombotic vein of extremity: unspecified vein of extremity Chronicity: acute Laterality: left Qualified Codes: I82.402 - Acute embolism and thrombosis of unspecified deep veins of left lower extremity Additional Impression: Knee pain Chronicity: acute Laterality: right Qualified Codes: M25.561 - Pain in right knee
== END 2016-10-06 17:20 | disposition home or self-care (01) ==
LOC: EDBD 12:16 → C.EDB 12:17
DX: I82.442 Acute embolism and thrombosis of left tibial vein (principal); M25.562 Pain in left knee; Z86.73 Personal history of transient ischemic attack (TIA), and cerebral infarction without residual deficits; Z79.01 Long term (current) use of anticoagulants; I25.10 Atherosclerotic heart disease of native coronary artery without angina pectoris; E78.5 Hyperlipidemia, unspecified; I10 Essential (primary) hypertension; M17.12 Unilateral primary osteoarthritis, left knee

== ENCOUNTER → 2016-11-29 | Outpatient (CLI) | payer OTHER ==
[~2016-11-29] MED LIST changes: +ENOX100I SQ; +LEVO100T7 PO; -LEVO25TA PO; -WARF2TAB PO; +WARF5TAB7 PO
[2016-11-29 16:46] LABS: ALT/SGPT 26 U/L (12-78); BLOOD UREA NITROGEN 19 mg/dl (7-18); BUN/CREATININE RATIO 14.7 (10-20); CALCIUM 9.6 mg/dl (8.5-10.1); CARBON DIOXIDE 26 mmol/L (21-32); CHLORIDE 109 mmol/L (98-107); CHOLESTEROL 120 mg/dl (0-200); GLUCOSE 113 mg/dl (70-99); POTASSIUM 4.3 mmol/L (3.5-5.1); SODIUM 143 mmol/L (136-145); TRIGLYCERIDES 152 mg/dl (0-150); VERY LOW DENSITY LIPOPROT CALC 30 mg/dl
[2016-11-29 16:57] LABS: ALB/GLOB RATIO 1.2 (0.9-2); ALKALINE PHOSPHATASE 93 U/L (45-117); AST/SGOT 23 U/L (15-37); CHOLESTEROL/HDL RATIO 2.4; HDL CHOLESTEROL 49 mg/dl; LDL CHOLESTEROL CALCULATED 41 mg/dl; PROSTATE SPECIFIC ANTIGEN 0.379 ng/ml (0.000-4.000)
== END | disposition home or self-care (01) ==
LOC: C.LABBFT 13:09
PROVIDERS: ATTEND Internal Medicine
DX: R35.0 Frequency of micturition (principal); E78.00 Pure hypercholesterolemia, unspecified; E03.9 Hypothyroidism, unspecified

== ENCOUNTER → 2017-10-21 | Outpatient (CLI) | payer OTHER ==
[~2017-10-21] MED LIST changes: +ACET-1693 PO; -ACET325T96 PO; +IPRA-64 INH; -IPRASOL4 INH
[2017-10-21 12:24] LABS: HEMATOCRIT 40.5 % (42-52); HEMOGLOBIN 13.4 g/dL (14.0-18.0); MEAN CELL VOLUME 97.8 fL (80-100); MEAN CORPUSCULAR HEMOGLOBIN 32.4 pg (25-34); MEAN CORPUSCULAR HGB CONC 33.1 g/dl (32-36); MEAN PLATELET VOLUME 11.3 fL (7.4-10.4); PLATELET COUNT 222 K/uL (130-400); RED CELL DISTRIBUTION WIDTH CV 13.2 % (11.5-14.5); WHITE BLOOD COUNT 5.66 K/uL (4.8-10.8)
== END | disposition home or self-care (01) ==
LOC: C.LABBFT 10:08
PROVIDERS: ATTEND Internal Medicine
DX: E03.9 Hypothyroidism, unspecified (principal); R68.89 Other general symptoms and signs